=== PATIENT | female | born 1950 | race Caucasian/White ===

== ENCOUNTER 2018-04-18 17:08 | Inpatient (IN) | payer MEDICARE ==
[2018-04-18] MEDS ORDERED: cefTRIAXone IN SWFI 1,000 MG/10 ML SYRINGE IVP STA (17:43)
[2018-04-18] MEDS ORDERED: IBUPROFEN 600 MG TAB PO STA (17:43)
[2018-04-18] MEDS ORDERED: ACETAMINOPHEN TAB 500 MG TAB PO STA (17:43)
--- NOTE | 2018-04-18 17:49 | ED ---
Abdominal Pain HPI - General Chief Complaint: Abdominal Pain Stated Complaint: Vomiting Time Seen by Provider: 04/18/18 17:33 Source: patient, RN notes reviewed, old records reviewed Mode of arrival: wheelchair Limitations: no limitations - History of Present Illness Initial Comments: 67-year-old female presents here on vacation from her home from [place] chief complaint of fever weakness and abdominal pain. Patient has a history of adrenal insufficiency, hypothyroid, depression, anxiety, cyclic vomiting, and common variable immunodeficiency. She reports that she gave herself a IVIG injection on Sunday. She occasionally does have reactions with the injection. Patient states that she has had no recent Motrin or Tylenol. Few episodes of vomiting. She arrives to the emergency Department very weak. Patient arrived with fever 104. Patient's surgical history includes cholecystectomy, partial hysterectomy. - Related Data Home Medications Medication Instructions Recorded Confirmed Fluconazole [Diflucan] 150 mg PO Q7D 04/18/18 04/18/18 Gabapentin [Neurontin] 400 mg PO BID 04/18/18 04/18/18 Levothyroxine Sodium [Synthroid] 37.5 mcg PO OTOOLE 04/18/18 04/18/18 Levothyroxine Sodium [Synthroid] 75 mcg PO MOTUWETHFRSA 04/18/18 04/18/18 Metoclopramide [Reglan] 10 mg PO Q8HR PRN 04/18/18 04/18/18 clonazePAM [KlonoPIN] 0.5 mg PO BID PRN 04/18/18 04/18/18 oxyCODONE HCL 30 mg PO Q6HR PRN 04/18/18 04/18/18 Allergies Allergy/AdvReac Type Severity Reaction Status Date / Time levofloxacin [From Levaquin] Allergy Rash/Hives Verified 04/18/18 19:19 Review of Systems ROS Statement: Those systems with pertinent positive or pertinent negative responses have been documented in the HPI. ROS Other: All systems not noted in ROS Statement are negative. Past Medical History Past Medical History: Thyroid Disorder Additional Past Medical History / Comment(s): Gastro History of Any Multi-Drug Resistant Organisms: None Reported Past Surgical History: No Surgical Hx Reported Past Psychological History: No Psychological Hx Reported Smoking Status: Never smoker Past Alcohol Use History: None Reported Past Drug Use History: None Reported General Exam - General Exam Comments Initial Comments: This is a 67-year-old female. Patient appears very weak and ill. Temperature 104F, pulse 124. Respiratory rate 22, blood pressure 122/79. Pulse ox 98. Limitations: no limitations Eye exam: Present: normal appearance, PERRL, EOMI. Absent: scleral icterus, conjunctival injection, periorbital swelling ENT exam: Present: normal exam, mucous membranes moist Neck exam: Present: normal inspection. Absent: tenderness, meningismus, lymphadenopathy Respiratory exam: Present: normal lung sounds bilaterally. Absent: respiratory distress, wheezes, rales, rhonchi, stridor Cardiovascular Exam: Present: normal rhythm, tachycardia, normal heart sounds. Absent: regular rate, systolic murmur, diastolic murmur, rubs, gallop, clicks GI/Abdominal exam: Present: soft, tenderness (Right lower quadrant suprapubic tenderness.), normal bowel sounds. Absent: distended, guarding, rebound, rigid Extremities exam: Present: normal inspection, full ROM, normal capillary refill. Absent: tenderness, pedal edema, joint swelling, calf tenderness Back exam: Present: normal inspection Neurological exam: Present: alert, oriented X3, CN II-XII intact Psychiatric exam: Present: normal affect, normal mood Skin exam: Present: warm, dry, intact, normal color. Absent: rash Course Vital Signs 04/18/18 04/18/18 04/18/18 17:18 18:00 18:26 Temperature 100.6 F H 103.9 F H Pulse Rate 124 H 122 H Respiratory 22 22 Rate Blood Pressure 122/79 160/71 O2 Sat by Pulse 99 96 Oximetry 04/18/18 04/18/18 19:13 20:27 Temperature 102.3 F H 99.1 F Pulse Rate 109 H 106 H Respiratory 20 17 Rate Blood Pressure 147/70 120/69 O2 Sat by Pulse 95 96 Oximetry - Reevaluation(s) Reevaluation #1: 04/18/18 19:40 Is reevaluated this time, she reports to me that she slipped out of bed and fell on her buttocks. Patient states that she laid on the floor for approximately 10 minutes. She then pulled herself back up into bed. Patient reports no injury. She states she has no head or neck pain. She has not went to computed tomography scan yet at this time. Patient was informed of her lab work. She does report to me that it seems that her symptoms are likely related to her recent fusion. She does report to me that it was actually yesterday she did the subcu injections of plasma. Medical Decision Making - Medical Decision Making 59-year-old female history of immunodeficiency had one day after receiving injections of her IVIG presents today with fever 104 and weakness. Does complain of some abdominal pain. She does report chronic abdominal pain. 2 L IV bolus is given and blood culture and lactic acid were obtained. Patient does have history of adrenal insufficiency. Patient was given 100 mg of IV Cortef due to history of adrenal deficiency and high fever concern for infection. Patient was started on IV Rocephin for a period coverage at this time. Patient does report she feels much better after receiving IV fluids and Motrin Tylenol per she looks much better. Patient CT of the pelvis is evidence of splenomegaly however no other acute process noted. Cultures of the blood and urine obtained. Patient will be admitted this time to Dr. Stack with consult to infectious disease. - Lab Data Result diagrams: 04/18/18 18:00 04/18/18 18:00 Lab Results 04/18/18 04/18/18 04/18/18 Range/Units 18:00 18:00 18:00 WBC 4.8 (3.8-10.6) k/uL RBC 4.41 (3.80-5.40) m/uL Hgb 13.4 (11.4-16.0) gm/dL Hct 41.0 (34.0-46.0) % MCV 92.9 (80.0-100.0) fL MCH 30.5 (25.0-35.0) pg MCHC 32.8 (31.0-37.0) g/dL RDW 14.1 (11.5-15.5) % Plt Count 154 (150-450) k/uL Neutrophils % 71 % Lymphocytes % 17 % Monocytes % 7 % Eosinophils % 3 % Basophils % 0 % Neutrophils # 3.4 (1.3-7.7) k/uL Lymphocytes # 0.8 L (1.0-4.8) k/uL Monocytes # 0.4 (0-1.0) k/uL Eosinophils # 0.2 (0-0.7) k/uL Basophils # 0.0 (0-0.2) k/uL PT (9.0-12.0) sec INR (<1.2) APTT (22.0-30.0) sec Sodium 136 L (137-145) mmol/L Potassium 4.1 (3.5-5.1) mmol/L Chloride 99 (98-107) mmol/L Carbon Dioxide 25 (22-30) mmol/L Anion Gap 12 mmol/L BUN 15 (7-17) mg/dL Creatinine 1.10 H (0.52-1.04) mg/dL Est GFR (CKD-EPI)AfAm 60 (>60 ml/min/1.73 sqM) Est GFR (CKD-EPI)NonAf 52 (>60 ml/min/1.73 sqM) Glucose 102 H (74-99) mg/dL Plasma Lactic Acid Suhas (0.7-2.0) mmol/L Calcium 8.8 (8.4-10.2) mg/dL Total Bilirubin 0.4 (0.2-1.3) mg/dL AST 35 (14-36) U/L ALT 34 (9-52) U/L Alkaline Phosphatase 85 (38-126) U/L Total Creatine Kinase 81 (30-135) U/L CK-MB (CK-2) 0.5 (0.0-2.4) ng/mL CK-MB (CK-2) Rel Index 0.6 Troponin I <0.012 (0.000-0.034) ng/mL Total Protein 6.9 (6.3-8.2) g/dL Albumin 3.8 (3.5-5.0) g/dL Urine Color Urine Appearance (Clear) Urine pH (5.0-8.0) Ur Specific [place] (1.001-1.035) Urine Protein (Negative) Urine Glucose (UA) (Negative) Urine Ketones (Negative) Urine Blood (Negative) Urine Nitrite (Negative) Urine Bilirubin (Negative) Urine Urobilinogen (<2.0) mg/dL Ur Leukocyte Esterase (Negative) Urine RBC (0-5) /hpf Urine WBC (0-5) /hpf Ur Squamous Epith Cells (0-4) /hpf Urine Bacteria (None) /hpf Urine Mucus (None) /hpf 04/18/18 04/18/18 04/18/18 Range/Units 18:00 18:00 19:30 WBC (3.8-10.6) k/uL RBC (3.80-5.40) m/uL Hgb (11.4-16.0) gm/dL Hct (34.0-46.0) % MCV (80.0-100.0) fL MCH (25.0-35.0) pg MCHC (31.0-37.0) g/dL RDW (11.5-15.5) % Plt Count (150-450) k/uL Neutrophils % % Lymphocytes % % Monocytes % % Eosinophils % % Basophils % % Neutrophils # (1.3-7.7) k/uL Lymphocytes # (1.0-4.8) k/uL Monocytes # (0-1.0) k/uL Eosinophils # (0-0.7) k/uL Basophils # (0-0.2) k/uL PT 10.0 (9.0-12.0) sec INR 1.0 (<1.2) APTT 23.5 (22.0-30.0) sec Sodium (137-145) mmol/L Potassium (3.5-5.1) mmol/L Chloride (98-107) mmol/L Carbon Dioxide (22-30) mmol/L Anion Gap mmol/L BUN (7-17) mg/dL Creatinine (0.52-1.04) mg/dL Est GFR (CKD-EPI)AfAm (>60 ml/min/1.73 sqM) Est GFR (CKD-EPI)NonAf (>60 ml/min/1.73 sqM) Glucose (74-99) mg/dL Plasma Lactic Acid Suhas 1.4 (0.7-2.0) mmol/L Calcium (8.4-10.2) mg/dL Total Bilirubin (0.2-1.3) mg/dL AST (14-36) U/L ALT (9-52) U/L Alkaline Phosphatase (38-126) U/L Total Creatine Kinase (30-135) U/L CK-MB (CK-2) (0.0-2.4) ng/mL CK-MB (CK-2) Rel Index Troponin I (0.000-0.034) ng/mL Total Protein (6.3-8.2) g/dL Albumin (3.5-5.0) g/dL Urine Color Yellow Urine Appearance Clear (Clear) Urine pH 7.0 (5.0-8.0) Ur Specific [place] 1.014 (1.001-1.035) Urine Protein Negative (Negative) Urine Glucose (UA) Negative (Negative) Urine Ketones Negative (Negative) Urine Blood Negative (Negative) Urine Nitrite Negative (Negative) Urine Bilirubin Negative (Negative) Urine Urobilinogen <2.0 (<2.0) mg/dL Ur Leukocyte Esterase Trace H (Negative) Urine RBC 2 (0-5) /hpf Urine WBC 3 (0-5) /hpf Ur Squamous Epith Cells <1 (0-4) /hpf Urine Bacteria Rare H (None) /hpf Urine Mucus Rare H (None) /hpf 04/18/18 17:57 EKG performed at 1754 shows sinus tachycardia, left anterior fascicular block. Abnormal EKG. Ventricular rate of 125 beats were minute. Was 128. QRS duration 80 ms. QT QTc is 310/440 ms. No evidence of ST elevation or T-wave inversion. - Radiology Data Radiology results: report reviewed Chest x-ray shows mild splenomegaly spleen is increased from 10.5 some is a 13 compared on exam. Otherwise negative CT of abdomen and pelvis. Disposition Clinical Impression: Fever, Weakness, Immune deficiency disorder, H/O splenomegaly, Adrenal insufficiency Disposition: ADMITTED IP TO THIS HOSP Condition: Stable Is patient prescribed a controlled substance at d/c from ED?: No When asked, does pt state using other controlled substances?: No If prescribed controlled substance>3 days was MAPS reviewed?: No If opioid is for acute pain is fill amount 7 days or less?: No If Rx opioid, was Start Talking consent form obtained?: No Referrals: Nonstaff,Physician [Primary Care Provider] - 1-2 days Time of Disposition: 21:05
[2018-04-18] MEDS ORDERED: HYDROCORTISONE SUCCINATE 100 MG/2 ML VIAL IV STA (17:50)
[2018-04-18] MEDS: SODIUM CHLORIDE 0.9% 500 ML IV SCH ×4 (18:00→19:45)
[2018-04-18 18:15] LABS: Basophils % (A) 0 %; Eosinophils # (A) 0.2 k/uL (0-0.7); Eosinophils % (A) 3 %; HGB 13.4 gm/dL (11.4-16.0); Lymphocytes # (A) 0.8 k/uL (1.0-4.8); Lymphocytes % (A) 17 %; MCH 30.5 pg (25.0-35.0); MCHC 32.8 g/dL (31.0-37.0); MCV 92.9 fL (80.0-100.0); Mean Platelet Volume 6.1; Monocytes # (A) 0.4 k/uL (0-1.0); Monocytes % (A) 7 %; Neutrophils # (A) 3.4 k/uL (1.3-7.7); Neutrophils % (A) 71 %; Platelet Count 154 k/uL (150-450); RBC 4.41 m/uL (3.80-5.40); RDW 14.1 % (11.5-15.5); WBC 4.8 k/uL (3.8-10.6)
[2018-04-18] MEDS: SODIUM CHLORIDE 0.9% 1,000 ML IV SCH (18:20)
[2018-04-18 18:26] LABS: Partial Thromboplastin Time 23.5 sec (22.0-30.0)
[2018-04-18 18:28] LABS: Creatine Kinase 81 U/L (30-135)
[2018-04-18 18:30] LABS: Albumin 3.8 g/dL (3.5-5.0); Calcium 8.8 mg/dL (8.4-10.2); Potassium 4.1 mmol/L (3.5-5.1); Total Bilirubin 0.4 mg/dL (0.2-1.3); Total Protein 6.9 g/dL (6.3-8.2)
[2018-04-18 18:41] LABS: Creatine Kinase MB 0.5 ng/mL (0.0-2.4); Troponin I <0.012 ng/mL (0.000-0.034)
--- NOTE | 2018-04-18 18:48 | XR ---
EXAMINATION TYPE: XR chest 2V DATE OF EXAM: 04/18/2018 COMPARISON: NONE HISTORY: Fever and vomiting TECHNIQUE: Frontal and lateral views of the chest are obtained. FINDINGS: Heart and mediastinum are normal. Lungs are clear. Diaphragm is normal. There are chest le ads. Bony thorax is intact. IMPRESSION: No active cardiopulmonary disease. Normal heart.
[2018-04-18 19:45] LABS: Appearance,Urine Clear (Clear); Bacteria,Urine Rare /hpf; Bilirubin,Urine Negative (Negative); Blood,Urine Negative (Negative); Color,Urine Yellow; Glucose,Urine (UA) Negative (Negative); Ketones,Urine Negative (Negative); Leukocyte Esterase,Urine Trace (Negative); Mucus,Urine Rare /hpf; Nitrite,Urine Negative (Negative); Protein,Urine Negative (Negative); RBC,Urine 2 /hpf (0-5); Specific Gravity,Urine 1.014 (1.001-1.035); Squamous Epithelial Cell,Urine <1 /hpf (0-4); Urobilinogen,Urine <2.0 mg/dL (<2.0); WBC,Urine 3 /hpf (0-5)
--- NOTE | 2018-04-18 20:28 | CT ---
EXAMINATION TYPE: CT abdomen pelvis w con DATE OF EXAM: 04/18/2018 COMPARISON: 05/12/2013 HISTORY: Fever after blood transfusion yesterday. CT DLP: 1666.4 mGycm Automated exposure control for dose reduction was used. TECHNIQUE: Helical acquisition of images was performed from the lung bases through the pelvis. CONTRAST: Performed without Oral Contrast and with IV Contrast, patient injected with 100ml mL of Isovue M300. FINDINGS: Lung bases are clear. There is no pleural effusion. Heart size is normal. There is no pericardial eff usion. Spleen is large and measures 13 cm. Liver shows no focal defect. There is no pancreatic mass. There a re clips from cholecystectomy. Bile ducts are not dilated. There is no adrenal mass. Kidneys show satisfactory contrast opacification. There is no hydronephrosi s. There is no retroperitoneal adenopathy. Bladder distends smoothly. There is no ascites. There is n o evidence of a pelvic mass. Uterus is anteverted. Appendix is not seen. There is no sign of appendic itis. I see no intestinal wall thickening. There are no dilated loops. I see no bony destructive proc ess. There is mild atheromatous change in the abdominal aorta. IMPRESSION: THERE IS MILD SPLENOMEGALY. SPLEEN IS INCREASED FROM 10.5 CM TO 13 CM COMPARED TO OLD EXAM. OTHERWISE NEGATIVE CT SCAN OF THE ABDOMEN AND PELVIS.
[2018-04-18] MEDS ORDERED: NALOXONE 0.4 MG/ML 1 ML VIAL IV PRN (21:52)
[2018-04-18] MEDS ORDERED: ACETAMINOPHEN TAB 325 MG TAB PO PRN (21:52)
[2018-04-18] MEDS ORDERED: ONDANSETRON 4 MG/2 ML VIAL IVP PRN (21:52)
[2018-04-18] MEDS ORDERED: Acetaminophen-Codeine 300-30mg TAB PO PRN (21:52)
[2018-04-18] MEDS ORDERED: IBUPROFEN 400 MG TAB PO PRN (21:52)
[2018-04-18] MEDS ORDERED: METOCLOPRAMIDE 10 MG TAB PO PRN (21:55)
[2018-04-18] MEDS ORDERED: NON-FORMULARY DRUG (Oxycodone Hcl [Oxycodone Hcl] 30 MG) PO PRN (21:55)
[2018-04-18] MEDS: HYDROmorphone 4 MG TABLET PO PRN (22:38)
--- NOTE | 2018-04-19 00:29 | P.HPIM ---
History of Present Illness H&P Date: 04/19/18 Chief Complaint: Fevers chills, fatigue and weakness The patient is a 67-year-old female with a past medical history of adrenal insufficiency, hypothyroidism, depression and anxiety and common variable immunodeficiency disease that presents to the ER with chief complaint of 3 days of intermittent fevers and rigors, along with mild left flank and lower abdominal pain and severe nausea. The patient has chronic lower abdominal and pelvic pain and is on chronic opioids. The patient has been on Ig replacement therapy for several years and currently takes Ig subcutaneously once a week. The patient reports that her last dose was on Sunday and that a few hours post administration she began feeling increasingly fatigued and weak and has been having ongoing fevers or chills, she denies any sore throat, cold- like symptoms. She does report a history of chronic cough and does note some dyspnea on exertion. The patient denies any urinary symptoms exception of dark urine, the patient subsequently presented here due to concern for sepsis that she's had this previously. In the ER showed a comprehensive workup including CBc, cmp and CT abdomen and pelvis That showed mild splenomegaly without any acute process. She was given Solu-Cortef started on empiric IV antibiotics with Rocephin and given several fluid boluses Review of Systems All other 12 point review of systems negative except per HPI Past Medical History Past Medical History: Thyroid Disorder Additional Past Medical History / Comment(s): Gastro History of Any Multi-Drug Resistant Organisms: None Reported Past Surgical History: No Surgical Hx Reported Past Psychological History: No Psychological Hx Reported Smoking Status: Never smoker Past Alcohol Use History: None Reported Past Drug Use History: None Reported Medications and Allergies Home Medications Medication Instructions Recorded Confirmed Type Ergocalciferol [Vitamin D2] 50,000 unit PO Q7D 04/18/18 04/18/18 History Fluconazole [Diflucan] 150 mg PO Q7D 04/18/18 04/18/18 History Gabapentin [Neurontin] 400 mg PO BID 04/18/18 04/18/18 History Gabapentin [Neurontin] 400 mg PO BID 04/18/18 04/18/18 History HYDROmorphone HCL [Dilaudid] 8 mg PO Q4H PRN 04/18/18 04/18/18 History Hydrocortisone [Cortef] 20 mg PO HS 04/18/18 04/18/18 History Hydrocortisone [Cortef] 30 mg PO QAM 04/18/18 04/18/18 History Levothyroxine Sodium [Synthroid] 37.5 mcg PO OTOOLE 04/18/18 04/18/18 History Levothyroxine Sodium [Synthroid] 75 mcg PO MOTUWETHFRSA 04/18/18 04/18/18 History Metoclopramide [Reglan] 10 mg PO Q8HR PRN 04/18/18 04/18/18 History Nortriptyline HCl [Pamelor] 25 mg PO DAILY 04/18/18 04/18/18 History Topiramate [Topamax] 50 mg PO HS 04/18/18 04/18/18 History buPROPion HCL [Wellbutrin SR] 150 mg PO BID 04/18/18 04/18/18 History clonazePAM [KlonoPIN] 0.5 mg PO BID PRN 04/18/18 04/18/18 History oxyCODONE HCL 30 mg PO Q6HR PRN 04/18/18 04/18/18 History Allergies Allergy/AdvReac Type Severity Reaction Status Date / Time levofloxacin [From Levaquin] Allergy Rash/Hives Verified 04/18/18 19:19 Physical Exam Vitals: Vital Signs Temp Pulse Resp BP Pulse Ox 04/18/18 22:12 99.0 F 91 20 127/70 96 04/18/18 20:27 99.1 F 106 H 17 120/69 96 04/18/18 19:13 102.3 F H 109 H 20 147/70 95 04/18/18 18:26 122 H 22 160/71 96 04/18/18 18:00 103.9 F H 04/18/18 17:18 100.6 F H 124 H 22 122/79 99 Intake and Output 04/18/18 04/18/18 04/19/18 14:59 22:59 06:59 Other: Weight 90.718 kg Constitutional: No acute distress, conversant, pleasant, weak and fatigued Eyes: Anicteric sclerae, moist conjunctiva, no lid-lag, PERRLA ENMT: NC/AT,Oropharynx clear, no erythema, exudates Neck:Supple, FROM, no masses, or JVD, No carotid bruits; No thyromegaly Lungs: Clear to auscultation, Clear to percussion, Normal respiratory effort, no accessory muscle use Cardiovascular: Heart regular in rate and rhythm, No murmurs, gallops, or rubs no peripheral edema Abdominal: Soft tender to deep palpation in the lower abdomen, non distended, no guarding, no rebound or rigidity, Normoactive bowel sounds No hepatomegaly, No splenomegaly, No palpable mass No abdominal wall hernia noted Skin: Normal temperature, tone, texture, turgor, No induration No subcutaneous nodules, No rash, lesions, No ulcers Extremities:No digital cyanosis No clubbing, Pedal pulses intact and symmetrical Radial pulses intact and symmetrical Normal gait and station, No calf tenderness Psychiatric: Alert and oriented to person, place and time, Appropriate affect Intact judgement Neuro: Muscles Strength 5/5 in all 4 extremities, Sensation to light touch grossly present throughout, Cranial nerves II-XII grossly intact. No focal sensory deficits Results CBC & Chem 7: 04/18/18 18:00 04/18/18 18:00 Labs: Abnormal Lab Results - Last 24 Hours (Table) 04/18/18 04/18/18 04/18/18 Range/Units 18:00 18:00 19:30 Lymphocytes # 0.8 L (1.0-4.8) k/uL Sodium 136 L (137-145) mmol/L Creatinine 1.10 H (0.52-1.04) mg/dL Glucose 102 H (74-99) mg/dL Ur Leukocyte Esterase Trace H (Negative) Urine Bacteria Rare H (None) /hpf Urine Mucus Rare H (None) /hpf Assessment and Plan Assessment: chronic medical conditions Hypothyroidism Depression and anxiety Chronic pain CODE STATUS DO NOT INTUBATE (1) Fever of unknown origin Current Visit: Yes Status: Acute Code(s): R50.9 - FEVER, UNSPECIFIED SNOMED Code(s): 1683659 (2) SIRS (systemic inflammatory response syndrome) Current Visit: Yes Status: Acute Code(s): R65.10 - SIRS OF NON-INFECTIOUS ORIGIN W/O ACUTE ORGAN DYSFUNCTION SNOMED Code(s): 191472563 (3) Combined variable immunodeficiency Current Visit: Yes Status: Acute Code(s): D83.9 - COMMON VARIABLE IMMUNODEFICIENCY, UNSPECIFIED SNOMED Code(s): 743065296 (4) Adrenal insufficiency Current Visit: Yes Status: Acute Code(s): E27.40 - UNSPECIFIED ADRENOCORTICAL INSUFFICIENCY SNOMED Code(s): 073833047 Plan: The patient is admitted anticipated greater than 2 midnight stay with fever of unknown origin with a complicated past focal history of common variable immunodeficiency disease on IG supplementation. The patient presented with SIRS with known source of infection at present , blood and urine cultures have been ordered imaging studies have shown no infectious etiology, she is continued on empiric IV antibiotics with Rocephin with plans to consult ID in the a.m. with continual supportive therapy with anti-emetics Tylenol for fevers. The patient is continue her chronic medications and is placed on DVT prophylaxis with SCDs and Lovenox. We'll continue to follow her clinical course
[2018-04-19 03:51] VITALS: BMI 33.3
[2018-04-19] MEDS: HYDROmorphone 4 MG TABLET PO PRN ×2 (04:36→08:46)
[2018-04-19] MEDS: SODIUM CHLORIDE 0.9% 1,000 ML IV SCH (04:38)
[2018-04-19] MEDS: LEVOTHYROXINE 75 MCG TAB PO SCH (05:55)
[2018-04-19 07:57] LABS: Albumin 2.9 g/dL (3.5-5.0); Calcium 7.9 mg/dL (8.4-10.2); Potassium 4.6 mmol/L (3.5-5.1); Total Bilirubin 0.4 mg/dL (0.2-1.3); Total Protein 5.6 g/dL (6.3-8.2)
[2018-04-19 08:10] LABS: Basophils % (A) 1 %; Eosinophils # (A) 0.1 k/uL (0-0.7); Eosinophils % (A) 2 %; HCT 36.8 % (34.0-46.0); HGB 12.2 gm/dL (11.4-16.0); Lymphocytes # (A) 1.3 k/uL (1.0-4.8); Lymphocytes % (A) 38 %; MCH 30.8 pg (25.0-35.0); MCHC 33.2 g/dL (31.0-37.0); MCV 92.7 fL (80.0-100.0); Mean Platelet Volume 7.4; Monocytes # (A) 0.5 k/uL (0-1.0); Monocytes % (A) 15 %; Neutrophils # (A) 1.5 k/uL (1.3-7.7); Neutrophils % (A) 41 %; Platelet Count 136 k/uL (150-450); RBC 3.97 m/uL (3.80-5.40); WBC 3.6 k/uL (3.8-10.6)
[2018-04-19] MEDS: NORTRIPTYLINE 25 MG CAP PO SCH (08:49)
[2018-04-19] MEDS: PANTOPRAZOLE 40 MG/10 ML VIAL IV SCH (08:50)
[2018-04-19] MEDS: buPROPion SR 150 MG TABLET.ER PO SCH ×2 (08:50→20:08)
[2018-04-19] MEDS: GABAPENTIN 400 MG CAP PO SCH ×2 (08:50→20:09)
[2018-04-19] MEDS: HYDROCORTISONE 10 MG TAB PO SCH (08:50)
[2018-04-19] MEDS: ENOXAPARIN 40 MG/0.4 ML SYRINGE SQ SCH (08:50)
[2018-04-19] MEDS ORDERED: GABAPENTIN 400 MG CAP PO SCH (09:00)
--- NOTE | 2018-04-19 10:44 | P.PN ---
Subjective Progress Note Date: 04/19/18 Principal diagnosis: Fever Doing well, no recurrent fevers. No chest pain or shortness of breath. No nausea or vomiting. Objective - Vital Signs Vital signs: Vital Signs Temp 96.5 F L 04/19/18 05:00 Pulse 74 04/19/18 05:00 Resp 16 04/19/18 05:00 BP 109/63 04/19/18 05:00 Pulse Ox 97 04/19/18 08:17 Intake & Output 04/18/18 04/19/18 04/19/18 18:59 06:59 18:59 Intake Total 1040 Balance 1040 Weight 90.718 kg 90.718 kg Intake: Intake, IV Titration 800 Amount Sodium Chloride 0.9% 1, 800 000 ml @ 100 mls/hr IV . Q10H CRISTINA Rx#:[id number] Oral 240 Other: # Voids 1 - Exam Constitutional: No acute distress, conversant, pleasant Eyes:Anicteric sclerae, moist conjunctiva, no lid-lag, PERRLA, ENMT: Oropharynx clear, no erythema, exudates Neck: Supple, FROM, no masses, or JVD, No carotid bruits, No thyromegaly Lungs: Clear to auscultation, Clear to percussion, Normal respiratory effort, no accessory muscle use Cardiovascular: Heart regular in rate and rhythm, No murmurs, gallops, or rubs, No peripheral edema Abdominal: Soft, Nontender, no guarding, rebound or rigidity, Normoactive bowel sounds, No hepatomegaly, No splenomegaly, No palpable mass Skin: Normal temperature, tone, texture, turgor, no induration, No subcutaneous nodules, No rash, lesions, No ulcers Extremities: No digital cyanosis, No clubbing, Pedal pulses intact and symmetrical, Radial pulses intact and symmetrical, No calf tenderness Psychiatric: Alert and oriented to person, place and time, appropriate affect, intact judgement Neuro: Muscles Strength 5/5 in all 4 extremities, Sensation to light touch grossly present throughout, Cranial nerves II-XII grossly intact, no focal sensory deficits - Labs CBC & Chem 7: 04/19/18 07:03 04/19/18 07:03 Labs: Abnormal Lab Results - Last 24 Hours (Table) 04/18/18 04/18/18 04/18/18 Range/Units 18:00 18:00 19:30 WBC (3.8-10.6) k/uL Plt Count (150-450) k/uL Lymphocytes # 0.8 L (1.0-4.8) k/uL Sodium 136 L (137-145) mmol/L Chloride (98-107) mmol/L Creatinine 1.10 H (0.52-1.04) mg/dL Glucose 102 H (74-99) mg/dL Calcium (8.4-10.2) mg/dL AST (14-36) U/L Total Protein (6.3-8.2) g/dL Albumin (3.5-5.0) g/dL Ur Leukocyte Esterase Trace H (Negative) Urine Bacteria Rare H (None) /hpf Urine Mucus Rare H (None) /hpf 04/19/18 04/19/18 Range/Units 07:03 07:03 WBC 3.6 L (3.8-10.6) k/uL Plt Count 136 L (150-450) k/uL Lymphocytes # (1.0-4.8) k/uL Sodium (137-145) mmol/L Chloride 108 H (98-107) mmol/L Creatinine (0.52-1.04) mg/dL Glucose (74-99) mg/dL Calcium 7.9 L (8.4-10.2) mg/dL AST 39 H (14-36) U/L Total Protein 5.6 L (6.3-8.2) g/dL Albumin 2.9 L (3.5-5.0) g/dL Ur Leukocyte Esterase (Negative) Urine Bacteria (None) /hpf Urine Mucus (None) /hpf Microbiology - Last 24 Hours (Table) 04/18/18 19:30 Urine Culture - Preliminary Urine,Voided Assessment and Plan Plan: Fever of unknown origin/SIRS (systemic inflammatory response syndrome) Patient is more prone to get severe infections secondary to Combined variable immunodeficiency, she gets IVIG every week. Currently watching her off antibiotics Tylenol for fevers. UA and chest x-ray negative for infection Blood cultures sent in ER, will follow Adrenal insufficiency/hypothyroidism Stable Resume home meds DVT prophylaxis SCDs and Lovenox Anticipated discharge: 1 day Disposition: Home
[2018-04-19 11:29] LABS: Glucose,Whole Blood 98 mg/dL (75-99)
[2018-04-19 17:40] LABS: Glucose,Whole Blood 105 mg/dL (75-99)
[2018-04-19] MEDS: clonazePAM 0.5 MG TAB PO PRN (18:18)
[2018-04-19] MEDS: TOPIRAMATE 25 MG TAB PO SCH (20:08)
[2018-04-19] MEDS: HYDROCORTISONE 20 MG TAB PO SCH (20:08)
[2018-04-19 20:31] LABS: Glucose,Whole Blood 105 mg/dL (75-99)
[2018-04-19] MEDS: TEMAZEPAM 15 MG CAP PO PRN (23:49)
[2018-04-20 01:45] VITALS: RESP 16
[2018-04-20] MEDS: SODIUM CHLORIDE 0.9% 1,000 ML IV SCH ×4 (02:12→20:51)
[2018-04-20] MEDS: LEVOTHYROXINE 75 MCG TAB PO SCH (06:01)
[2018-04-20 07:33] LABS: Glucose,Whole Blood 80 mg/dL (75-99)
[2018-04-20] MEDS: PANTOPRAZOLE 40 MG/10 ML VIAL IV SCH (07:49)
[2018-04-20] MEDS: HYDROCORTISONE 10 MG TAB PO SCH (07:50)
[2018-04-20] MEDS: NORTRIPTYLINE 25 MG CAP PO SCH (07:50)
[2018-04-20] MEDS: buPROPion SR 150 MG TABLET.ER PO SCH ×2 (07:50→20:50)
[2018-04-20] MEDS: ENOXAPARIN 40 MG/0.4 ML SYRINGE SQ SCH (07:50)
[2018-04-20] MEDS: GABAPENTIN 400 MG CAP PO SCH ×2 (07:51→20:50)
[2018-04-20] MEDS: LORazepam 2 MG/ML INJ IV PRN ×2 (09:42→19:31)
[2018-04-20 11:02] LABS: Glucose,Whole Blood 98 mg/dL (75-99)
[2018-04-20] MEDS ORDERED: SALT AND SODA MOUTHWASH 1,000 ML PO PRN (15:06)
[2018-04-20] MEDS: cefTRIAXone IN SWFI 1,000 MG/10 ML SYRINGE IVP SCH (15:54)
[2018-04-20 17:23] LABS: Glucose,Whole Blood 115 mg/dL (75-99)
--- NOTE | 2018-04-20 17:25 | P.PN ---
Subjective Progress Note Date: 04/20/18 Principal diagnosis: Fever Feeling better. No chest pain or shortness of breath. No recurrent fevers. Objective - Vital Signs Vital signs: Vital Signs Temp 97.7 F 04/20/18 15:50 Pulse 96 04/20/18 15:50 Resp 16 04/20/18 15:50 BP 122/76 04/20/18 15:50 Pulse Ox 93 L 04/20/18 15:50 Intake & Output 04/19/18 04/20/18 04/20/18 18:59 06:59 18:59 Intake Total 924 036 0404 Balance 042 055 9948 Weight 90.718 kg Intake: Intake, IV Titration 900 1200 Amount Sodium Chloride 0.9% 1, 900 1200 000 ml @ 100 mls/hr IV . Q10H [facility] Rx#:[id number] Oral 260 Other: # Voids 2 1 6 - Exam Constitutional: No acute distress, conversant, pleasant Eyes:Anicteric sclerae, moist conjunctiva, no lid-lag, PERRLA, ENMT: Oropharynx clear, no erythema, exudates Neck: Supple, FROM, no masses, or JVD, No carotid bruits, No thyromegaly Lungs: Clear to auscultation, Clear to percussion, Normal respiratory effort, no accessory muscle use Cardiovascular: Heart regular in rate and rhythm, No murmurs, gallops, or rubs, No peripheral edema Abdominal: Soft, Nontender, no guarding, rebound or rigidity, Normoactive bowel sounds, No hepatomegaly, No splenomegaly, No palpable mass Skin: Normal temperature, tone, texture, turgor, no induration, No subcutaneous nodules, No rash, lesions, No ulcers Extremities: No digital cyanosis, No clubbing, Pedal pulses intact and symmetrical, Radial pulses intact and symmetrical, No calf tenderness Psychiatric: Alert and oriented to person, place and time, appropriate affect, intact judgement Neuro: Muscles Strength 5/5 in all 4 extremities, Sensation to light touch grossly present throughout, Cranial nerves II-XII grossly intact, no focal sensory deficits - Labs CBC & Chem 7: 04/19/18 07:03 04/19/18 07:03 Labs: Abnormal Lab Results - Last 24 Hours (Table) 04/19/18 04/19/18 04/20/18 Range/Units 17:38 20:29 17:22 POC Glucose (mg/dL) 105 H 105 H 115 H (75-99) mg/dL Microbiology - Last 24 Hours (Table) 04/19/18 00:41 Blood Culture - Preliminary Blood No Growth after 24 hours 04/18/18 19:30 Urine Culture - Final Urine,Voided 04/18/18 18:00 Blood Culture - Preliminary Blood No Growth after 24 hours Assessment and Plan Plan: Fever of unknown origin/SIRS (systemic inflammatory response syndrome) Discussed with ID, Dr. Stewart Patient is more prone to get severe infections secondary to Combined variable immunodeficiency, she gets IVIG every week. On ceftriaxone 1 g IV daily Tylenol for fevers. UA and chest x-ray negative for infection Blood cultures sent in ER, will follow, currently negative Adrenal insufficiency/hypothyroidism Stable Resume home meds DVT prophylaxis SCDs and Lovenox Anticipated discharge: 1 day Disposition: Home
[2018-04-20] MEDS: clonazePAM 0.5 MG TAB PO PRN (18:23)
--- NOTE | 2018-04-20 18:34 | P.CONS ---
History of Present Illness - Reason for Consult Consult date: 04/20/18 - Chief Complaint fever and chills - History of Present Illness 67-year-old female with an extensive and complicated past medical history regarding her many years of illnesses related to her common variable immunodeficiency. She relates that she has difficulties with her immune system as well as autoimmune disease and states that she has crossover autoimmune disease with Sjogren's, rheumatoid arthritis and lupus. She has chronic pain and difficulty with her joints and a dry mouth. She's had many urinary tract infections over the years and over the last few years has had multiple bouts of pneumonia. She has interstitial cystitis and has had many interventions, including bladder distention treatments with some improvement. If she does not improve over time her urologist is even offered a cystectomy and ileostomy. The patient fortunately does not think that's a good idea at this time. The patient relates today that she is feeling slightly better but he had high-grade fevers chills and rigors at the presentation. She was very concerned because last year when she was living in [place] she had similar symptoms and went into septic shock and had an 8 week hospital stay and recovery. She relates that she can feel that her spleen is enlarged again giving her some discomfort superimposed on some of her chronic pain syndrome difficulties with abdominal and pelvic pain. She today is feeling somewhat better after hydration and antibiotic therapy years are improved and she is having no further chills or rigors. She has profound fatigue which is not new. Review of Systems 67-year-old female who does have obesity seems comfortable at this time HEENT:Denies headache or acute visual change. Denies sinus or mouth discomforts. Denies neck stiffness or pain. Denies significant oral cavity pain. Denies difficulty on swallowing.complains of dry oral cavity Lungs: Denies significant shortness of breath, cough, sputum production, or hemoptysis. Cardiovascular: Denies significant shortness of breath, chest pain, chest wall pain, orthopnea, dyspnea on exertion, syncope Gastrointestinal:she is chronic abdominal pain is a bit worse now that her spleen is enlarged in the left upper quadrant. She denying nausea or emesis patient diarrhea melena hematochezia or hematemesis Musculoskeletal:She has chronic musculoskeletal pains that are diffuse nothing is acutely flared at this time Skin: Denies new rash or lesions. No new ulcers or wounds are related.. Neuro: Denies headache or visual change. Denies any new onset weakness or difficulty with ambulation. Denies falls or seizures. Psychiatric:complains of chronic anxiety and depression Endocrine: voids of chronic fatigue and has had weight gain over time Past Medical History Past Medical History: Thyroid Disorder Additional Past Medical History / Comment(s): Gastro History of Any Multi-Drug Resistant Organisms: None Reported Past Surgical History: No Surgical Hx Reported Past Anesthesia/Blood Transfusion Reactions: No Reported Reaction Past Psychological History: No Psychological Hx Reported Additional Psychological History / Comment(s): single no longer able to live on her own consequently lives with her sister and [id number]. Because they[place] to [place] for the summer she does come here at that time. It is complicated because of her IVIG subcutaneous injection. She is a lifelong nonsmoker and denies any significant alcohol use no recreational drug use. No animals in the home at this time. travels between [place] and [place]. No international travel. No experience. 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 Smoking Status: Never smoker Past Alcohol Use History: None Reported Past Drug Use History: None Reported - Past Family History Mother Family Medical History: Thyroid Disorder Medications and Allergies Home Medications and Allergies Comment(s): Current Medications Acetaminophen (Tylenol Tab) 650 mg PO Q6HR PRN PRN Reason: Mild Pain or Fever > 100.5 Acetaminophen/Codeine Phosphate (Tylenol #3) 1 each PO Q4HR PRN PRN Reason: Moderate Pain Last Admin: 04/20/18 12:54 Dose: 1 each Bupropion HCl (Wellbutrin Sr) 150 mg PO BID [facility] Last Admin: 04/20/18 07:50 Dose: 150 mg Ceftriaxone Sodium (Rocephin) 1,000 mg IVP Q24HR [facility] Last Admin: 04/20/18 15:54 Dose: 1,000 mg Clonazepam (Klonopin) 0.5 mg PO BID PRN PRN Reason: Anxiety Last Admin: 04/20/18 18:23 Dose: 0.5 mg Enoxaparin Sodium (Lovenox) 40 mg SQ DAILY [facility] Last Admin: 04/20/18 07:50 Dose: 40 mg Ergocalciferol (Vitamin D2) 50,000 unit PO Q7D [facility] Fluconazole (Diflucan) 150 mg PO Q7D [facility] Gabapentin (Neurontin) 400 mg PO BID [facility] Last Admin: 04/20/18 07:51 Dose: 400 mg Hydrocortisone (Cortef) 20 mg PO HS [facility] Last Admin: 04/19/18 20:08 Dose: 20 mg Hydrocortisone (Cortef) 30 mg PO QAM [facility] Last Admin: 04/20/18 07:50 Dose: 30 mg Sodium Chloride (Saline 0.9%) 1,000 mls @ 100 mls/hr IV .Q10H [facility] Last Admin: 04/20/18 11:58 Dose: 100 mls/hr Ibuprofen (Motrin) 400 mg PO Q6HR PRN PRN Reason: Mild Pain or Fever > 100.5 Levothyroxine Sodium (Synthroid) 37.5 mcg PO Potter@0630 [facility] Levothyroxine Sodium (Synthroid) 75 mcg PO MoTuWeThFrSa@0630 [facility] Last Admin: 04/20/18 06:01 Dose: 75 mcg Lorazepam (Ativan) 0.5 mg IV Q6HR PRN PRN Reason: Anxiety Last Admin: 04/20/18 09:42 Dose: 0.5 mg Metoclopramide HCl (Reglan) 10 mg PO Q8HR PRN PRN Reason: Nausea Morphine Sulfate (Morphine Sulfate (Inj)) 4 mg IV Q4HR PRN PRN Reason: Severe Pain Naloxone HCl (Narcan) 0.2 mg IV Q2M PRN PRN Reason: Opioid Reversal Nortriptyline HCl (Pamelor) 25 mg PO DAILY [facility] Last Admin: 04/20/18 07:50 Dose: 25 mg Ondansetron HCl (Zofran) 4 mg IVP Q8HR PRN PRN Reason: Nausea And Vomiting Oxycodone HCl (Oxyir) 30 mg PO Q6H PRN PRN Reason: Pain Last Admin: 04/20/18 14:15 Dose: 30 mg Pantoprazole Sodium (Protonix) 40 mg IV DAILY [facility] Last Admin: 04/20/18 07:49 Dose: 40 mg Sodium Bicarbonate () 20 ml PO 5XD PRN PRN Reason: Dry Mouth Temazepam (Restoril) 15 mg PO HS PRN PRN Reason: Insomnia Last Admin: 04/19/18 23:49 Dose: 15 mg Topiramate (Topamax) 50 mg PO HS [facility] Last Admin: 04/19/18 20:08 Dose: 50 mg Home Medications Medication Instructions Recorded Confirmed Type Ergocalciferol [Vitamin D2] 50,000 unit PO Q7D 04/18/18 04/18/18 History Fluconazole [Diflucan] 150 mg PO Q7D 04/18/18 04/18/18 History Gabapentin [Neurontin] 400 mg PO BID 04/18/18 04/18/18 History Gabapentin [Neurontin] 400 mg PO BID 04/18/18 04/18/18 History Hydrocortisone [Cortef] 20 mg PO HS 04/18/18 04/18/18 History Hydrocortisone [Cortef] 30 mg PO QAM 04/18/18 04/18/18 History Levothyroxine Sodium [Synthroid] 37.5 mcg PO POTTER 04/18/18 04/18/18 History Levothyroxine Sodium [Synthroid] 75 mcg PO MOTUWETHFRSA 04/18/18 04/18/18 History Metoclopramide [Reglan] 10 mg PO Q8HR PRN 04/18/18 04/18/18 History Nortriptyline HCl [Pamelor] 25 mg PO DAILY 04/18/18 04/18/18 History Topiramate [Topamax] 50 mg PO HS 04/18/18 04/18/18 History buPROPion HCL [Wellbutrin SR] 150 mg PO BID 04/18/18 04/18/18 History clonazePAM [KlonoPIN] 0.5 mg PO BID PRN 04/18/18 04/18/18 History oxyCODONE HCL 30 mg PO Q6HR PRN 04/18/18 04/18/18 History Allergies Allergy/AdvReac Type Severity Reaction Status Date / Time levofloxacin [From Levaquin] Allergy Rash/Hives Verified 04/18/18 19:19 Physical Exam Vitals: Vital Signs Temp Pulse Resp BP Pulse Ox 04/20/18 15:50 97.7 F 96 16 122/76 93 L 04/20/18 15:06 80 16 04/20/18 06:07 97.3 F L 80 16 157/92 97 04/19/18 23:00 97.1 F L 85 16 145/92 94 L Intake and Output 04/20/18 04/20/18 04/20/18 06:59 14:59 22:59 Intake Total 800 1200 Balance 800 1200 Intake: Intake, IV Titration 800 1200 Amount Sodium Chloride 0.9% 1, 800 1200 000 ml @ 100 mls/hr IV . Q10H [facility] Rx#:[id number] Other: # Voids 1 6 6 Weight 90.718 kg 90.718 kg 59-year-old woman who has obesity is apparently quite comfortable at this moment which is improved from admission HEENT: Anicteric conjunctiva are pink and moist nasal mucosa grossly intact without significant lesions, there is no thrush.oral lesions oral cavity is slightly dry Neck: The neck is supple without significant lymphadenopathy or thyromegaly. Lungs: Good bilateral air entry without significant crackles or wheezing. There is no significant bronchial sounds. There is no egophony or dullness. Heart: Regular rate and rhythm with an audible S1-S2, no S3 no S4. There is no significant murmur click or rub, PMI was nondisplaced. Abdomen: Positive bowel sounds soft and nontender without palpable masses the liver is not enlarged splenomegaly is just palpable There was no guarding or rebound. Extremities: The upper extremities have excellent pulses they are symmetric, no significant petechiae or telangiectasia. No splinter hemorrhages were noted. The lower extremities are free from significant edema. The peripheral pulses were 2+ and symmetric. Neuro: Awake alert oriented to person place and time. There are no acute new gross focal sensory motor deficits. Results CBC & Chem 7: 04/19/18 07:03 04/19/18 07:03 Labs: Abnormal Lab Results - Last 24 Hours (Table) 04/19/18 04/20/18 Range/Units 20:29 17:22 POC Glucose (mg/dL) 105 H 115 H (75-99) mg/dL Microbiology - Last 24 Hours (Table) 04/19/18 00:41 Blood Culture - Preliminary Blood No Growth after 24 hours 04/18/18 19:30 Urine Culture - Final Urine,Voided 04/18/18 18:00 Blood Culture - Preliminary Blood No Growth after 24 hours Laboratory Results WBC 3.6 k/uL (3.8-10.6) L 04/19/18 07:03 RBC 3.97 m/uL (3.80-5.40) 04/19/18 07:03 Hgb 12.2 gm/dL (11.4-16.0) 04/19/18 07:03 Hct 36.8 % (34.0-46.0) 04/19/18 07:03 MCV 92.7 fL (80.0-100.0) 04/19/18 07:03 MCH 30.8 pg (25.0-35.0) 04/19/18 07:03 MCHC 33.2 g/dL (31.0-37.0) 04/19/18 07:03 RDW 14.0 % (11.5-15.5) 04/19/18 07:03 Plt Count 136 k/uL (150-450) L 04/19/18 07:03 Neutrophils % 41 % 04/19/18 07:03 Lymphocytes % 38 % 04/19/18 07:03 Monocytes % 15 % 04/19/18 07:03 Eosinophils % 2 % 04/19/18 07:03 Basophils % 1 % 04/19/18 07:03 Neutrophils # 1.5 k/uL (1.3-7.7) 04/19/18 07:03 Lymphocytes # 1.3 k/uL (1.0-4.8) 04/19/18 07:03 Monocytes # 0.5 k/uL (0-1.0) 04/19/18 07:03 Eosinophils # 0.1 k/uL (0-0.7) 04/19/18 07:03 Basophils # 0.0 k/uL (0-0.2) 04/19/18 07:03 PT 10.0 sec (9.0-12.0) 04/18/18 18:00 INR 1.0 (<1.2) 04/18/18 18:00 APTT 23.5 sec (22.0-30.0) 04/18/18 18:00 Sodium 139 mmol/L (137-145) 04/19/18 07:03 Potassium 4.6 mmol/L (3.5-5.1) 04/19/18 07:03 Chloride 108 mmol/L (98-107) H 04/19/18 07:03 Carbon Dioxide 23 mmol/L (22-30) 04/19/18 07:03 Anion Gap 8 mmol/L 04/19/18 07:03 BUN 14 mg/dL (7-17) 04/19/18 07:03 Creatinine 0.85 mg/dL (0.52-1.04) 04/19/18 07:03 Est GFR (CKD-EPI)AfAm 82 (>60 ml/min/1.73 sqM) 04/19/18 07:03 Est GFR (CKD-EPI)NonAf 71 (>60 ml/min/1.73 sqM) 04/19/18 07:03 Glucose 97 mg/dL (74-99) 04/19/18 07:03 POC Glucose (mg/dL) 115 mg/dL (75-99) H 04/20/18 17:22 POC Glu Clinical Courier Sophia Serrano 04/20/18 17:22 Plasma Lactic Acid Suhas 1.4 mmol/L (0.7-2.0) 04/18/18 18:00 Calcium 7.9 mg/dL (8.4-10.2) L 04/19/18 07:03 Total Bilirubin 0.4 mg/dL (0.2-1.3) 04/19/18 07:03 AST 39 U/L (14-36) H 04/19/18 07:03 ALT 33 U/L (9-52) 04/19/18 07:03 Alkaline Phosphatase 57 U/L (38-126) 04/19/18 07:03 Total Creatine Kinase 81 U/L (30-135) 04/18/18 18:00 CK-MB (CK-2) 0.5 ng/mL (0.0-2.4) 04/18/18 18:00 CK-MB (CK-2) Rel Index 0.6 04/18/18 18:00 Troponin I <0.012 ng/mL (0.000-0.034) 04/18/18 18:00 Total Protein 5.6 g/dL (6.3-8.2) L 04/19/18 07:03 Albumin 2.9 g/dL (3.5-5.0) L 04/19/18 07:03 Urine Color Yellow 04/18/18 19:30 Urine Appearance Clear (Clear) 04/18/18 19:30 Urine pH 7.0 (5.0-8.0) 04/18/18 19:30 Ur Specific Spring 1.014 (1.001-1.035) 04/18/18 19:30 Urine Protein Negative (Negative) 04/18/18 19:30 Urine Glucose (UA) Negative (Negative) 04/18/18 19:30 Urine Ketones Negative (Negative) 04/18/18 19:30 Urine Blood Negative (Negative) 04/18/18 19:30 Urine Nitrite Negative (Negative) 04/18/18 19:30 Urine Bilirubin Negative (Negative) 04/18/18 19:30 Urine Urobilinogen <2.0 mg/dL (<2.0) 04/18/18 19:30 Ur Leukocyte Esterase Trace (Negative) H 04/18/18 19:30 Urine RBC 2 /hpf (0-5) 04/18/18 19:30 Urine WBC 3 /hpf (0-5) 04/18/18 19:30 Ur Squamous Epith Cells <1 /hpf (0-4) 04/18/18 19:30 Urine Bacteria Rare /hpf (None) H 04/18/18 19:30 Urine Mucus Rare /hpf (None) H 04/18/18 19:30 Microbiology 04/19/18 00:41 Blood Blood Culture - Preliminary No Growth after 24 hours 04/18/18: Urine,Voided Urine Culture - Final 04/18/18 18:00 Blood Blood Culture - Preliminary No Growth after 24 hours Assessment and Plan (1) Combined variable immunodeficiency Narrative/Plan: 67-year-old female presents to the emergency center from home with significant weakness fever chills rigors have been going on for about 3 days. She was developing some left abdominal pain and left flank pain. it was associated with some nausea and generalized malaise. She does take chronic pain medicationand found that that without pain. Upon presentation she had a high-grade fever 103.9, 102.3 overnight. Because of her feverthe infectious diseases consultation was requested. The patient does have a known history of common variable insufficiency and she is at great risk for underlying infections. However the patient relates that her fever started directly after she did her most recent dose of subcutaneous immunoglobulin. Fever and injection site irritation of the most common complications of this infusion therapy. However fever nearly of 104 is somewhat unusual and so have significant concerns of potential underlying infection. She received a dose of Rocephin and is only showing some improvement. Cultures are in process she does have a history of chronic urinary infections and would continue Rocephin for now until urine cultures are available. If she does improve it would be the option of transitioning to oral cefuroxime to complete 7 days orally 500 mg orally every 12 hours. If possible she could've always follow-up in the outpatient infectious diseases office, we may be able to work with her consulting property manager in [place] to supply her subcutaneous immunoglobulin While she is is staying in [place] Current Visit: Yes Status: Acute Code(s): D83.9 - COMMON VARIABLE IMMUNODEFICIENCY, UNSPECIFIED SNOMED Code(s): 535197172 (2) Adrenal insufficiency Current Visit: Yes Status: Acute Code(s): E27.40 - UNSPECIFIED ADRENOCORTICAL INSUFFICIENCY SNOMED Code(s): 018655989 (3) Fever Current Visit: Yes Status: Acute Code(s): R50.9 - FEVER, UNSPECIFIED SNOMED Code(s): 546238975 (4) Weakness Current Visit: Yes Status: Acute Code(s): R53.1 - WEAKNESS SNOMED Code(s) : 79108821
[2018-04-20] MEDS: TOPIRAMATE 25 MG TAB PO SCH (20:50)
[2018-04-20] MEDS: HYDROCORTISONE 20 MG TAB PO SCH (20:50)
[2018-04-20] MEDS: MORPHINE SULFATE 2 MG/ML SYRINGE IV PRN (20:55)
[2018-04-20] MEDS: TEMAZEPAM 15 MG CAP PO PRN (23:24)
[2018-04-21] MEDS: MORPHINE SULFATE 2 MG/ML SYRINGE IV PRN ×3 (02:19→14:03)
[2018-04-21] MEDS: SODIUM CHLORIDE 0.9% 1,000 ML IV SCH (05:34)
[2018-04-21 05:46] VITALS: BP 137/83; PULSE 77; TEMP 96.9
[2018-04-21] MEDS ORDERED: LEVOTHYROXINE 75 MCG TAB PO SCH (06:30)
[2018-04-21] MEDS: ENOXAPARIN 40 MG/0.4 ML SYRINGE SQ SCH (07:11)
[2018-04-21] MEDS: buPROPion SR 150 MG TABLET.ER PO SCH (07:12)
[2018-04-21] MEDS: PANTOPRAZOLE 40 MG/10 ML VIAL IV SCH (07:12)
[2018-04-21] MEDS: HYDROCORTISONE 10 MG TAB PO SCH (07:12)
[2018-04-21] MEDS: GABAPENTIN 400 MG CAP PO SCH (07:12)
[2018-04-21] MEDS: cefTRIAXone IN SWFI 1,000 MG/10 ML SYRINGE IVP SCH (08:45)
--- NOTE | 2018-04-21 12:51 | P.DS ---
Providers Date of admission: 04/18/18 21:55 Expected date of discharge: 04/21/18 Attending physician: Rich Rader MD Consults: 04/18/18 21:30 Consult Physician Stat Consulting Provider: Osei Stewart Consult Reason/Comments: Fever, Hx of immune deficiency Do you want consulting provider notified?: Yes Primary care physician: Physician Nonstaff Hospital Course: 67-year-old female with a past medical history of adrenal insufficiency, hypothyroidism, depression and anxiety and common variable immunodeficiency disease that presents to the ER with chief complaint of 3 days of intermittent fevers and rigors, along with mild left flank and lower abdominal pain and severe nausea. The patient has chronic lower abdominal and pelvic pain and is on chronic opioids. The patient has been on IVIg replacement therapy for several years. After the last infusion she thought she was getting a reaction from the infusion. After the infusion she began feeling increasingly fatigued and weak and has been having ongoing fevers or chills. She denies any sore throat, cold-like symptoms. She does report a history of chronic cough and does note some dyspnea on exertion. The patient denies any urinary symptoms with the exception of dark urine, the patient subsequently presented here due to concern for sepsis that she's had this previously. In the ER she had a comprehensive workup including CBc, cmp and those were within normal limits. CT abdomen and pelvis showed mild splenomegaly without any acute process. She was started on empiric IV antibiotics with Rocephin, given several fluid boluses and was subsequently admitted to the hospital for further evaluation and management. Initially during the hospitalization she spiked a fever of 104 but later her temperature normalized. Chest x-ray and urinalysis were both negative for infection. Blood cultures did not reveal any growth after 48 hours. She was continued on Rocephin. Symptomatically she felt much better over the course of the hospitalization. She was seen in consultation with infectious disease Dr. Stewart who recommended continuing the Rocephin. Dr. Stewart also advised to discharge patient on ceftin to complete 1 week of treatment. Patient is agreeable to this plan. Patient will be discharged home in stable condition. She was instructed to follow-up with her primary care physician as soon as possible after discharge. She was also told to come back to emergency department if she has any recurrent fevers or chills. Patient Condition at Discharge: Stable Plan - Discharge Summary New Discharge Prescriptions: New Cefuroxime [Ceftin] 250 mg PO BID #10 tablet Continue Metoclopramide [Reglan] 10 mg PO Q8HR PRN PRN Reason: Nausea Levothyroxine Sodium [Synthroid] 37.5 mcg PO OTOOLE Gabapentin [Neurontin] 400 mg PO BID Fluconazole [Diflucan] 150 mg PO Q7D oxyCODONE HCL 30 mg PO Q6HR PRN PRN Reason: Pain clonazePAM [KlonoPIN] 0.5 mg PO BID PRN PRN Reason: Anxiety Levothyroxine Sodium [Synthroid] 75 mcg PO MOTUWETHFRSA Topiramate [Topamax] 50 mg PO HS Nortriptyline HCl [Pamelor] 25 mg PO DAILY Ergocalciferol [Vitamin D2 (DRISDOL)] 50,000 unit PO Q7D buPROPion HCL [Wellbutrin SR] 150 mg PO BID Gabapentin [Neurontin] 400 mg PO BID Hydrocortisone [Cortef] 20 mg PO HS Hydrocortisone [Cortef] 30 mg PO QAM Discharge Medication List Ergocalciferol [Vitamin D2 (DRISDOL)] 50,000 unit PO Q7D 04/18/18 [History] Fluconazole [Diflucan] 150 mg PO Q7D 04/18/18 [History] Gabapentin [Neurontin] 400 mg PO BID 04/18/18 [History] Gabapentin [Neurontin] 400 mg PO BID 04/18/18 [History] Hydrocortisone [Cortef] 20 mg PO HS 04/18/18 [History] Hydrocortisone [Cortef] 30 mg PO QAM 04/18/18 [History] Levothyroxine Sodium [Synthroid] 37.5 mcg PO OTOOLE 04/18/18 [History] Levothyroxine Sodium [Synthroid] 75 mcg PO MOTUWETHFRSA 04/18/18 [History] Metoclopramide [Reglan] 10 mg PO Q8HR PRN 04/18/18 [History] Nortriptyline HCl [Pamelor] 25 mg PO DAILY 04/18/18 [History] Topiramate [Topamax] 50 mg PO HS 04/18/18 [History] buPROPion HCL [Wellbutrin SR] 150 mg PO BID 04/18/18 [History] clonazePAM [KlonoPIN] 0.5 mg PO BID PRN 04/18/18 [History] oxyCODONE HCL 30 mg PO Q6HR PRN 04/18/18 [History] Cefuroxime [Ceftin] 250 mg PO BID #10 tablet 04/21/18 [Rx] Follow up Appointment(s)/Referral(s): Nonstaff,Physician [Primary Care Provider] - 1-2 days Patient Instructions/Handouts: Cefuroxime (By mouth), Fever in Adults (GEN), Weakness (GEN), Neutropenia (DC), Primary Immune Deficiency Disorder (DC)
--- NOTE | 2018-04-21 15:11 | P.PN ---
Subjective Progress Note Date: 04/21/18 67-year-old female with an extensive and complicated past medical history regarding her many years of illnesses related to her common variable immunodeficiency. She relates that she has difficulties with her immune system as well as autoimmune disease and states that she has crossover autoimmune disease with Sjogren's, rheumatoid arthritis and lupus. She has chronic pain and difficulty with her joints and a dry mouth. She's had many urinary tract infections over the years and over the last few years has had multiple bouts of pneumonia. She has interstitial cystitis and has had many interventions, including bladder distention treatments with some improvement. If she does not improve over time her urologist is even offered a cystectomy and ileostomy. The patient fortunately does not think that's a good idea at this time. The patient relates today that she is feeling slightly better but he had high-grade fevers chills and rigors at the presentation. She was very concerned because last year when she was living in [place] she had similar symptoms and went into septic shock and had an 8 week hospital stay and recovery. She relates that she can feel that her spleen is enlarged again giving her some discomfort superimposed on some of her chronic pain syndrome difficulties with abdominal and pelvic pain. She today is feeling somewhat better after hydration and antibiotic therapy years are improved and she is having no further chills or rigors. She has profound fatigue which is not new. 04/21/2018 patient is feeling better. She never feels really well overall. Fortunately her fevers have completely resolved and having no new symptoms. She agrees that she is ready for discharge. Objective - Vital Signs Vital signs: Vital Signs Temp 96.9 F L 04/21/18 07:00 Pulse 77 04/21/18 07:00 Resp 16 04/21/18 07:00 BP 137/83 04/21/18 07:00 Pulse Ox 93 L 04/21/18 07:00 Intake & Output 04/20/18 04/21/18 04/21/18 18:59 06:59 18:59 Intake Total 1200 1040 600 Balance 1200 1040 600 Weight 90.718 kg 90.718 kg Intake: Intake, IV Titration 1200 450 600 Amount Sodium Chloride 0.9% 1, 1200 450 600 000 ml @ 50 mls/hr IV . Q20H CRISTINA Rx#:[id number] Oral 590 Other: Voiding Method Toilet # Voids 6 2 4 - Exam 67-year-old woman who has obesity is apparently quite comfortable at this moment which is improved from admission HEENT: Anicteric conjunctiva are pink and moist nasal mucosa grossly intact without significant lesions, there is no thrush.oral lesions oral cavity is slightly dry Neck: The neck is supple without significant lymphadenopathy or thyromegaly. Lungs: Good bilateral air entry without significant crackles or wheezing. There is no significant bronchial sounds. There is no egophony or dullness. Heart: Regular rate and rhythm with an audible S1-S2, no S3 no S4. There is no significant murmur click or rub, PMI was nondisplaced. Abdomen: Positive bowel sounds soft and nontender without palpable masses the liver is not enlarged splenomegaly is just palpable There was no guarding or rebound. Extremities: The upper extremities have excellent pulses they are symmetric, no significant petechiae or telangiectasia. No splinter hemorrhages were noted. The lower extremities are free from significant edema. The peripheral pulses were 2+ and symmetric. Neuro: Awake alert oriented to person place and time. There are no acute new gross focal sensory motor deficits. - Labs CBC & Chem 7: 04/19/18 07:03 04/19/18 07:03 Labs: Abnormal Lab Results - Last 24 Hours (Table) 04/20/18 Range/Units 17:22 POC Glucose (mg/dL) 115 H (75-99) mg/dL Microbiology - Last 24 Hours (Table) 04/19/18 00:41 Blood Culture - Preliminary Blood No Growth after 48 hours 04/18/18 18:00 Blood Culture - Preliminary Blood No Growth after 48 hours Laboratory Results WBC 3.6 k/uL (3.8-10.6) L 04/19/18 07:03 RBC 3.97 m/uL (3.80-5.40) 04/19/18 07:03 Hgb 12.2 gm/dL (11.4-16.0) 04/19/18 07:03 Hct 36.8 % (34.0-46.0) 04/19/18 07:03 MCV 92.7 fL (80.0-100.0) 04/19/18 07:03 MCH 30.8 pg (25.0-35.0) 04/19/18 07:03 MCHC 33.2 g/dL (31.0-37.0) 04/19/18 07:03 RDW 14.0 % (11.5-15.5) 04/19/18 07:03 Plt Count 136 k/uL (150-450) L 04/19/18 07:03 Neutrophils % 41 % 04/19/18 07:03 Lymphocytes % 38 % 04/19/18 07:03 Monocytes % 15 % 04/19/18 07:03 Eosinophils % 2 % 04/19/18 07:03 Basophils % 1 % 04/19/18 07:03 Neutrophils # 1.5 k/uL (1.3-7.7) 04/19/18 07:03 Lymphocytes # 1.3 k/uL (1.0-4.8) 04/19/18 07:03 Monocytes # 0.5 k/uL (0-1.0) 04/19/18 07:03 Eosinophils # 0.1 k/uL (0-0.7) 04/19/18 07:03 Basophils # 0.0 k/uL (0-0.2) 04/19/18 07:03 PT 10.0 sec (9.0-12.0) 04/18/18 18:00 INR 1.0 (<1.2) 04/18/18 18:00 APTT 23.5 sec (22.0-30.0) 04/18/18 18:00 Sodium 139 mmol/L (137-145) 04/19/18 07:03 Potassium 4.6 mmol/L (3.5-5.1) 04/19/18 07:03 Chloride 108 mmol/L (98-107) H 04/19/18 07:03 Carbon Dioxide 23 mmol/L (22-30) 04/19/18 07:03 Anion Gap 8 mmol/L 04/19/18 07:03 BUN 14 mg/dL (7-17) 04/19/18 07:03 Creatinine 0.85 mg/dL (0.52-1.04) 04/19/18 07:03 Est GFR (CKD-EPI)AfAm 82 (>60 ml/min/1.73 sqM) 04/19/18 07:03 Est GFR (CKD-EPI)NonAf 71 (>60 ml/min/1.73 sqM) 04/19/18 07:03 Glucose 97 mg/dL (74-99) 04/19/18 07:03 POC Glucose (mg/dL) 115 mg/dL (75-99) H 04/20/18 17:22 POC Glu [employer] ID Sophia Nice 04/20/18 17:22 Plasma Lactic Acid Suhas 1.4 mmol/L (0.7-2.0) 04/18/18 18:00 Calcium 7.9 mg/dL (8.4-10.2) L 04/19/18 07:03 Total Bilirubin 0.4 mg/dL (0.2-1.3) 04/19/18 07:03 AST 39 U/L (14-36) H 04/19/18 07:03 ALT 33 U/L (9-52) 04/19/18 07:03 Alkaline Phosphatase 57 U/L (38-126) 04/19/18 07:03 Total Creatine Kinase 81 U/L (30-135) 04/18/18 18:00 CK-MB (CK-2) 0.5 ng/mL (0.0-2.4) 04/18/18 18:00 CK-MB (CK-2) Rel Index 0.6 04/18/18 18:00 Troponin I <0.012 ng/mL (0.000-0.034) 04/18/18 18:00 Total Protein 5.6 g/dL (6.3-8.2) L 04/19/18 07:03 Albumin 2.9 g/dL (3.5-5.0) L 04/19/18 07:03 Urine Color Yellow 04/18/18 19:30 Urine Appearance Clear (Clear) 04/18/18 19:30 Urine pH 7.0 (5.0-8.0) 04/18/18 19:30 Ur Specific [place] 1.014 (1.001-1.035) 04/18/18 19:30 Urine Protein Negative (Negative) 04/18/18 19:30 Urine Glucose (UA) Negative (Negative) 04/18/18 19:30 Urine Ketones Negative (Negative) 04/18/18 19:30 Urine Blood Negative (Negative) 04/18/18 19:30 Urine Nitrite Negative (Negative) 04/18/18 19:30 Urine Bilirubin Negative (Negative) 04/18/18 19:30 Urine Urobilinogen <2.0 mg/dL (<2.0) 04/18/18 19:30 Ur Leukocyte Esterase Trace (Negative) H 04/18/18 19:30 Urine RBC 2 /hpf (0-5) 04/18/18 19:30 Urine WBC 3 /hpf (0-5) 04/18/18 19:30 Ur Squamous Epith Cells <1 /hpf (0-4) 04/18/18 19:30 Urine Bacteria Rare /hpf (None) H 04/18/18 19:30 Urine Mucus Rare /hpf (None) H 04/18/18 19:30 Microbiology 04/19/18 00:41 Blood Blood Culture - Preliminary No Growth after 48 hours 04/18/18 18:00 Blood Blood Culture - Preliminary No Growth after 48 hours 04/18/18 19:30 Urine,Voided Urine Culture - Final Assessment and Plan (1) Combined variable immunodeficiency Narrative/Plan: 67-year-old female presents to the emergency center from home with significant weakness fever chills rigors have been going on for about 3 days. She was developing some left abdominal pain and left flank pain. it was associated with some nausea and generalized malaise. She does take chronic pain medicationand found that that without pain. Upon presentation she had a high-grade fever 103.9, 102.3 overnight. Because of her feverthe infectious diseases consultation was requested. The patient does have a known history of common variable insufficiency and she is at great risk for underlying infections. However the patient relates that her fever started directly after she did her most recent dose of subcutaneous immunoglobulin. Fever and injection site irritation of the most common complications of this infusion therapy. However fever nearly of 104 is somewhat unusual and so have significant concerns of potential underlying infection. She received a dose of Rocephin and is only showing some improvement. Cultures are in process she does have a history of chronic urinary infections and would continue Rocephin for now until urine cultures are available. If she does improve it would be the option of transitioning to oral cefuroxime to complete 7 days orally 500 mg orally every 12 hours. If possible she could've always follow-up in the outpatient infectious diseases office, we may be able to work with her international editorial producer in [place] to supply her subcutaneous immunoglobulin While she is is staying in [place] 04/21/2018 patient is much improved. No further fevers. Responded well to antibiotic therapy and supportive care. She will start cefuroxime 500 mg every 12 hours for 5 days and she arrives home. She will be going back to [place] very soon. I suggested that she could talk with her international editorial producer in [place] and can work with us here in [facility] and globulin locally so she does not need to be transported. Current Visit: Yes Status: Acute Code(s): D83.9 - COMMON VARIABLE IMMUNODEFICIENCY, UNSPECIFIED SNOMED Code(s): 983397162 (2) Adrenal insufficiency Current Visit: Yes Status: Acute Code(s): E27.40 - UNSPECIFIED ADRENOCORTICAL INSUFFICIENCY SNOMED Code(s): 379864350 (3) Fever Current Visit: Yes Status: Acute Code(s): R50.9 - FEVER, UNSPECIFIED SNOMED Code(s): 925804965 (4) Weakness Current Visit: Yes Status: Acute Code(s): R53.1 - WEAKNESS SNOMED Code(s) : 41811480
[2018-04-21] MEDS ORDERED: NORTRIPTYLINE 25 MG CAP PO SCH (21:00)
[2018-04-22] MEDS ORDERED: FLUCONAZOLE 150 MG TAB PO SCH (09:00)
[2018-04-22] MEDS ORDERED: ERGOCALCIFEROL 50,000 UNIT CAP PO SCH (09:00)
== END 2018-04-21 15:16 | disposition home or self-care (01) | DRG 864 ==
LOC: EC 17:08 → 5ONC 21:55
PROVIDERS: ADMIT Family Medicine; ATTEND Family Medicine
DX: R50.9 Fever, unspecified (principal); R65.10 Systemic inflammatory response syndrome (SIRS) of non-infectious origin without acute organ dysfunction; D83.9 Common variable immunodeficiency, unspecified; E27.40 Unspecified adrenocortical insufficiency; E03.9 Hypothyroidism, unspecified; F32.9 Major depressive disorder, single episode, unspecified; F41.9 Anxiety disorder, unspecified; G89.4 Chronic pain syndrome; M06.9 Rheumatoid arthritis, unspecified; N30.10 Interstitial cystitis (chronic) without hematuria; Z79.891 Long term (current) use of opiate analgesic; Z90.710 Acquired absence of both cervix and uterus; R53.83 Other fatigue; R68.2 Dry mouth, unspecified; E66.9 Obesity, unspecified; Z68.33 Body mass index [BMI] 33.0-33.9, adult; Z88.1 Allergy status to other antibiotic agents; Z66 Do not resuscitate; Z79.890 Hormone replacement therapy; Z79.899 Other long term (current) drug therapy; Z87.440 Personal history of urinary (tract) infections; Z87.01 Personal history of pneumonia (recurrent); Z83.49 Family history of other endocrine, nutritional and metabolic diseases; Z91.81 History of falling; Z98.1 Arthrodesis status; R53.1 Weakness
CPT/HCPCS: 36415; 71046; 74177; 80053; 81001; 82550; 82553; 83605; 84484; 85025; 85610; 85730; 87040; 87086; 93005; 94760; 96374; 96375; 99285

== ENCOUNTER 2018-05-19 16:01 | Inpatient (IN) | payer MEDICARE, BC ==
[2018-05-19] MEDS ORDERED: ACETAMINOPHEN TAB 500 MG TAB PO STA (16:55)
[2018-05-19] MEDS: SODIUM CHLORIDE 0.9% 500 ML IV SCH ×4 (17:18→18:59)
[2018-05-19 17:32] LABS: Basophils % (A) 0 %; Eosinophils # (A) 0.1 k/uL (0-0.7); Eosinophils % (A) 0 %; HCT 40.8 % (34.0-46.0); HGB 12.8 gm/dL (11.4-16.0); Lymphocytes # (A) 1.1 k/uL (1.0-4.8); Lymphocytes % (A) 7 %; MCHC 31.5 g/dL (31.0-37.0); MCV 95.4 fL (80.0-100.0); Mean Platelet Volume 6.2; Monocytes # (A) 0.8 k/uL (0-1.0); Monocytes % (A) 5 %; Neutrophils # (A) 13.3 k/uL (1.3-7.7); Neutrophils % (A) 87 %; Platelet Count 233 k/uL (150-450); RBC 4.28 m/uL (3.80-5.40); RDW 14.2 % (11.5-15.5); WBC 15.4 k/uL (3.8-10.6)
--- NOTE | 2018-05-19 17:34 | XR ---
EXAMINATION TYPE: XR chest 2V DATE OF EXAM: 05/19/2018 COMPARISON: Prior chest 04/18/2018 HISTORY: Fever TECHNIQUE: Frontal and lateral views of the chest are obtained. FINDINGS: There is no focal air space opacity, pleural effusion, or pneumothorax seen. The cardiac silhouette size is within normal limits. The osseous structures are intact. There are overlying car diac leads. Patient is rotated. Some minimal basilar atelectasis is suspected. IMPRESSION: Minimal basilar atelectasis is suspected, follow-up as indicated.
[2018-05-19 17:36] LABS: Albumin 3.8 g/dL (3.5-5.0); Calcium 8.8 mg/dL (8.4-10.2); Potassium 4.3 mmol/L (3.5-5.1); Total Bilirubin 0.4 mg/dL (0.2-1.3); Total Protein 6.6 g/dL (6.3-8.2)
[2018-05-19 17:37] LABS: Partial Thromboplastin Time 22.9 sec (22.0-30.0); Prothrombin Time 9.8 sec (9.0-12.0)
[2018-05-19 18:09] LABS: Appearance,Urine Clear (Clear); Bilirubin,Urine Negative (Negative); Blood,Urine Negative (Negative); Color,Urine Yellow; Glucose,Urine (UA) Negative (Negative); Ketones,Urine Negative (Negative); Leukocyte Esterase,Urine Negative (Negative); Nitrite,Urine Negative (Negative); Protein,Urine Negative (Negative); Specific Gravity,Urine 1.009 (1.001-1.035); Urobilinogen,Urine <2.0 mg/dL (<2.0)
--- NOTE | 2018-05-19 18:30 | ED ---
General Adult HPI - General Chief complaint: Fever Stated complaint: sepsis Time Seen by Provider: 05/19/18 16:55 Source: patient Mode of arrival: ambulatory Limitations: no limitations - History of Present Illness Initial comments: Prisca is a 67-year-old female with a history significant for recent admission for sepsis of unknown source and past medical history significant for adrenal insufficiency, hypothyroidism, depression and anxiety and common variable immunodeficiency disease. Patient presented to the ER today for evaluation of fevers, Marlyn's and fatigue. Patient reports that last month she experienced similar symptoms and ended up being admitted to the hospital for sepsis of unknown cause. Patient was treated with IV antibiotics and discharged home on oral antibiotics. Patient reports that she's not certain what the cause of her sepsis was. She states that she felt somewhat better after the antibiotics but remained fatigued. She states that over the past 3 days she's been progressively more fatigued, had decreased appetite, had a subjective fever, chills and Marlyn's. Patient reports that yesterday she was able to spend time with her sister and into her usual activities of daily living however today she was too fatigued to get out of bed which prompted her sister to bring her to the ER for further evaluation. Since her previous discharge patient is followed with Dr. Miller and is scheduled to see him again tomorrow however due to her overwhelming fatigue, fever and rigors she chose to come to the ER to be evaluated tonight. Patient denies any chest pain or shortness of breath. She does report a mild cough but states that this is been chronic in nature and unchanged recently. Patient denies any headache, vision changes, runny or stuffy nose, any sore throat or trouble swallowing, any chest pain, shortness of breath, she does report left upper quadrant abdominal pain but this again is chronic in nature and unchanged recently. She denies any change in bowel or bladder habits, she denies any rashes or any numbness or tingling in her extremities. The patient does receive immunoglobulin infusions every 7-10 days. Her most recent infusion was Sunday of last week. - Related Data Home Medications Medication Instructions Recorded Confirmed Ergocalciferol [Vitamin D2 50,000 unit PO Q7D 04/18/18 05/19/18 (DRISDOL)] Hydrocortisone [Cortef] 20 mg PO HS 04/18/18 05/19/18 Hydrocortisone [Cortef] 30 mg PO QAM 04/18/18 05/19/18 Levothyroxine Sodium [Synthroid] 37.5 mcg PO OTOOLE 04/18/18 05/19/18 Levothyroxine Sodium [Synthroid] 75 mcg PO MOTUWETHFRSA 04/18/18 05/19/18 Nortriptyline HCl [Pamelor] 25 mg PO DAILY 04/18/18 05/19/18 Topiramate [Topamax] 50 mg PO HS 04/18/18 05/19/18 buPROPion HCL [Wellbutrin SR] 150 mg PO BID 04/18/18 05/19/18 clonazePAM [KlonoPIN] 1 mg PO DAILY 04/18/18 05/19/18 oxyCODONE HCL 30 mg PO Q4H PRN 04/18/18 05/19/18 Gabapentin 600 mg PO TID 05/19/18 05/19/18 Hizentra 15 g SQ Q7D 05/19/18 05/19/18 Liothyronine Sodium [Cytomel] 5 mcg PO DAILY 05/19/18 05/19/18 Ondansetron [Zofran] 4 mg PO Q12HR PRN 05/19/18 05/19/18 Vilazodone HCl [Viibryd] 40 mg PO QAM 05/19/18 05/19/18 Allergies Allergy/AdvReac Type Severity Reaction Status Date / Time ciprofloxacin [From Cipro] Allergy Rash/Hives Verified 05/19/18 17:54 levofloxacin [From Levaquin] Allergy Rash/Hives Verified 05/19/18 17:54 quinine Allergy ruptures Verified 05/19/18 17:54 tendons Review of Systems ROS Statement: Those systems with pertinent positive or pertinent negative responses have been documented in the HPI. ROS Other: All systems not noted in ROS Statement are negative. Constitutional: Reports: fever, chills, weakness (Generalized) Eyes: Denies: eye pain ENT: Denies: ear pain, throat pain Respiratory: Reports: cough (Chronic). Denies: dyspnea Cardiovascular: Denies: chest pain, palpitations, dyspnea on exertion Endocrine: Reports: fatigue Gastrointestinal: Reports: abdominal pain (Left upper quadrant). Denies: nausea , vomiting Genitourinary: Denies: urgency, dysuria, frequency Musculoskeletal: Denies: back pain Skin: Denies: rash Neurological: Denies: headache Psychiatric: Reports: anxiety Hematological/Lymphatic: Denies: easy bleeding, easy bruising Past Medical History Past Medical History: Thyroid Disorder Additional Past Medical History / Comment(s): Gastro, sepsis, adrenal insufficiency, hypothyroidism, depression and anxiety, common variable immunodeficiency disease History of Any Multi-Drug Resistant Organisms: MRSA Date of last positivie culture/infection: 2007 MDRO Source:: back Past Surgical History: Tonsillectomy Additional Past Surgical History / Comment(s): thyroidectomy, patial intestines removed, abd surgeries Past Anesthesia/Blood Transfusion Reactions: No Reported Reaction Past Psychological History: No Psychological Hx Reported Smoking Status: Never smoker Past Alcohol Use History: None Reported Past Drug Use History: None Reported - Past Family History Mother Family Medical History: Thyroid Disorder General Exam Limitations: no limitations General appearance: alert, other (Appears uncomfortable) Head exam: Present: atraumatic Eye exam: Present: normal appearance, PERRL ENT exam: Present: mucous membranes dry Neck exam: Present: normal inspection Respiratory exam: Present: normal lung sounds bilaterally. Absent: respiratory distress Cardiovascular Exam: Present: normal rhythm, tachycardia GI/Abdominal exam: Present: soft. Absent: distended Rectal exam: Present: deferred Extremities exam: Present: normal inspection Back exam: Present: normal inspection Neurological exam: Present: alert, oriented X3 Psychiatric exam: Present: flat affect Skin exam: Present: warm, dry, intact Course Vital Signs 05/19/18 05/19/18 05/19/18 16:27 17:27 18:03 Temperature 100.2 F H 99.4 F Pulse Rate 129 H 113 H 103 H Respiratory 20 20 18 Rate Blood Pressure 150/92 140/81 140/80 O2 Sat by Pulse 93 L 93 L 93 L Oximetry - Reevaluation(s) Reevaluation #1: 05/19/18 18:45 Patient was reevaluated, heart rate has improved to 100, blood pressure is stable, patient reports feeling unwell but cannot further describe how she is feeling. Medical Decision Making - Medical Decision Making The patient was seen and evaluated, history was obtained from the patient, her sister at bedside as well as review of her medical record Patient with a complicated past medical history including common variable immunodeficiency, follows with rheumatology as well as infectious disease. Recent admission for Sirs as a source for sepsis was never identified. Patient did improve with IV Rocephin and was discharged home on oral antibiotics. On arrival the patient is noted to have an oral to [employer] of 100.2, be tachycardic with a normal blood pressure A full sepsis workup was ordered Labs reveal leukocytosis with a white blood cell count 15.4 Chest x-ray reveals no acute process View of medical record reveals the patient was previously treated with Rocephin , a dose of Rocephin was ordered empirically for this patient Workup in the ER reveals no acute cause of Sirs, patient care was discussed with Dr. Orozco who previously admitted the patient. He agrees with plan for placing the patient in observation with IV Rocephin and a consult to Dr. Stewart infectious disease. - Lab Data Result diagrams: 05/19/18 17:03 05/19/18 17:03 Lab Results 05/19/18 05/19/18 05/19/18 Range/Units 17:03 17:03 17:03 WBC 15.4 H (3.8-10.6) k/uL RBC 4.28 (3.80-5.40) m/uL Hgb 12.8 (11.4-16.0) gm/dL Hct 40.8 (34.0-46.0) % MCV 95.4 (80.0-100.0) fL MCH 30.0 (25.0-35.0) pg MCHC 31.5 (31.0-37.0) g/dL RDW 14.2 (11.5-15.5) % Plt Count 233 (150-450) k/uL Neutrophils % 87 % Lymphocytes % 7 % Monocytes % 5 % Eosinophils % 0 % Basophils % 0 % Neutrophils # 13.3 H (1.3-7.7) k/uL Lymphocytes # 1.1 (1.0-4.8) k/uL Monocytes # 0.8 (0-1.0) k/uL Eosinophils # 0.1 (0-0.7) k/uL Basophils # 0.0 (0-0.2) k/uL PT (9.0-12.0) sec INR (<1.2) APTT (22.0-30.0) sec Sodium 135 L (137-145) mmol/L Potassium 4.3 (3.5-5.1) mmol/L Chloride 102 (98-107) mmol/L Carbon Dioxide 24 (22-30) mmol/L Anion Gap 9 mmol/L BUN 13 (7-17) mg/dL Creatinine 0.80 (0.52-1.04) mg/dL Est GFR (CKD-EPI)AfAm 88 (>60 ml/min/1.73 sqM) Est GFR (CKD-EPI)NonAf 76 (>60 ml/min/1.73 sqM) Glucose 99 (74-99) mg/dL Plasma Lactic Acid Suhas 1.1 (0.7-2.0) mmol/L Calcium 8.8 (8.4-10.2) mg/dL Total Bilirubin 0.4 (0.2-1.3) mg/dL AST 26 (14-36) U/L ALT 30 (9-52) U/L Alkaline Phosphatase 86 (38-126) U/L Troponin I (0.000-0.034) ng/mL Total Protein 6.6 (6.3-8.2) g/dL Albumin 3.8 (3.5-5.0) g/dL Urine Color Urine Appearance (Clear) Urine pH (5.0-8.0) Ur Specific [place] (1.001-1.035) Urine Protein (Negative) Urine Glucose (UA) (Negative) Urine Ketones (Negative) Urine Blood (Negative) Urine Nitrite (Negative) Urine Bilirubin (Negative) Urine Urobilinogen (<2.0) mg/dL Ur Leukocyte Esterase (Negative) 05/19/18 05/19/18 05/19/18 Range/Units 17:03 17:03 17:55 WBC (3.8-10.6) k/uL RBC (3.80-5.40) m/uL Hgb (11.4-16.0) gm/dL Hct (34.0-46.0) % MCV (80.0-100.0) fL MCH (25.0-35.0) pg MCHC (31.0-37.0) g/dL RDW (11.5-15.5) % Plt Count (150-450) k/uL Neutrophils % % Lymphocytes % % Monocytes % % Eosinophils % % Basophils % % Neutrophils # (1.3-7.7) k/uL Lymphocytes # (1.0-4.8) k/uL Monocytes # (0-1.0) k/uL Eosinophils # (0-0.7) k/uL Basophils # (0-0.2) k/uL PT 9.8 (9.0-12.0) sec INR 1.0 (<1.2) APTT 22.9 (22.0-30.0) sec Sodium (137-145) mmol/L Potassium (3.5-5.1) mmol/L Chloride (98-107) mmol/L Carbon Dioxide (22-30) mmol/L Anion Gap mmol/L BUN (7-17) mg/dL Creatinine (0.52-1.04) mg/dL Est GFR (CKD-EPI)AfAm (>60 ml/min/1.73 sqM) Est GFR (CKD-EPI)NonAf (>60 ml/min/1.73 sqM) Glucose (74-99) mg/dL Plasma Lactic Acid Suhas (0.7-2.0) mmol/L Calcium (8.4-10.2) mg/dL Total Bilirubin (0.2-1.3) mg/dL AST (14-36) U/L ALT (9-52) U/L Alkaline Phosphatase (38-126) U/L Troponin I <0.012 (0.000-0.034) ng/mL Total Protein (6.3-8.2) g/dL Albumin (3.5-5.0) g/dL Urine Color Yellow Urine Appearance Clear (Clear) Urine pH 8.0 (5.0-8.0) Ur Specific [place] 1.009 (1.001-1.035) Urine Protein Negative (Negative) Urine Glucose (UA) Negative (Negative) Urine Ketones Negative (Negative) Urine Blood Negative (Negative) Urine Nitrite Negative (Negative) Urine Bilirubin Negative (Negative) Urine Urobilinogen <2.0 (<2.0) mg/dL Ur Leukocyte Esterase Negative (Negative) Disposition Clinical Impression: SIRS (systemic inflammatory response syndrome) Disposition: ADMITTED IP TO THIS [facility] Condition: Good Referrals: Nonstaff,Physician [Primary Care Provider] - 1-2 days Time of Disposition: 18:46 Decision Time: 18:46
[2018-05-19] MEDS ORDERED: ACETAMINOPHEN TAB 325 MG TAB PO PRN (18:36)
[2018-05-19] MEDS ORDERED: NALOXONE 0.4 MG/ML 1 ML VIAL IV PRN (18:36)
[2018-05-19] MEDS ORDERED: ONDANSETRON 4 MG/2 ML VIAL IVP PRN (18:36)
[2018-05-19] MEDS ORDERED: IBUPROFEN 400 MG TAB PO PRN (18:36)
[2018-05-19] MEDS: HYDROmorphone 2 MG TAB PO PRN ×2 (18:59→23:25)
[2018-05-19] MEDS: cefTRIAXone IN SWFI 1,000 MG/10 ML SYRINGE IVP SCH (20:13)
[2018-05-19] MEDS ORDERED: SODIUM CHLORIDE 0.9% 2,000 ML IV ONE (21:52)
[2018-05-19] MEDS ORDERED: LEVOTHYROXINE 75 MCG TAB PO SCH (22:00)
--- NOTE | 2018-05-19 22:09 | P.HPIM ---
History of Present Illness H&P Date: 05/19/18 Chief Complaint: Fever, fatigue 67-year-old female with history of adrenal insufficiency and common variable immunodeficiency syndrome and hypothyroidism Patient presented to the hospital with 3 day history of fevers, fatigue and Marlyn's. Patient last dose of IVIG was 1 week ago. Patient otherwise denies any coughing or dysuria. She denies any headaches or neck stiffness. Patient denies any nausea or vomiting. Patient denies any changes in her bowel habits or urinary habits. Patient has been traveling between here in [place]. She was admitted to the hospital a month ago for management of similar symptoms she was managed with empiric antibiotics with Rocephin, ID specialty was assisting in her management patient was discharged eventually on short course of Ceftin and and no clear source of infection was identified. Patient blood cultures at that time showed no growth after 48 hours. This time she is presented with similar symptoms as mentioned above without clear source of underlying infection. Blood cultures were taken in the ED, urinalysis unremarkable, chest x-ray unremarkable. Patient will be admitted for empiric antibiotic therapy and stress dose of hydrocortisone and aggressive IV fluid hydration and will be monitored and follow-up on blood culture results. ID will be consult Review of Systems Pertinent positives as noted in HPI. All other systems were reviewed and are negative Past Medical History Past Medical History: Thyroid Disorder Additional Past Medical History / Comment(s): Gastro, sepsis, adrenal insufficiency, hypothyroidism, depression and anxiety, common variable immunodeficiency disease History of Any Multi-Drug Resistant Organisms: MRSA Date of last positivie culture/infection: 2007 MDRO Source:: back Past Surgical History: Tonsillectomy Additional Past Surgical History / Comment(s): thyroidectomy, patial intestines removed, abd surgeries Past Anesthesia/Blood Transfusion Reactions: No Reported Reaction Past Psychological History: No Psychological Hx Reported Smoking Status: Never smoker Past Alcohol Use History: None Reported Past Drug Use History: None Reported - Past Family History Mother Family Medical History: Thyroid Disorder Medications and Allergies Home Medications Medication Instructions Recorded Confirmed Type Ergocalciferol [Vitamin D2 50,000 unit PO Q7D 04/18/18 05/19/18 History (DRISDOL)] Hydrocortisone [Cortef] 20 mg PO HS 04/18/18 05/19/18 History Hydrocortisone [Cortef] 30 mg PO QAM 04/18/18 05/19/18 History Levothyroxine Sodium [Synthroid] 37.5 mcg PO OTOOLE 04/18/18 05/19/18 History Levothyroxine Sodium [Synthroid] 75 mcg PO MOTUWETHFRSA 04/18/18 05/19/18 History Nortriptyline HCl [Pamelor] 25 mg PO DAILY 04/18/18 05/19/18 History Topiramate [Topamax] 50 mg PO HS 04/18/18 05/19/18 History buPROPion HCL [Wellbutrin SR] 150 mg PO BID 04/18/18 05/19/18 History clonazePAM [KlonoPIN] 1 mg PO DAILY 04/18/18 05/19/18 History oxyCODONE HCL 30 mg PO Q4H PRN 04/18/18 05/19/18 History Gabapentin 600 mg PO TID 05/19/18 05/19/18 History Hizentra 15 g SQ Q7D 05/19/18 05/19/18 History Liothyronine Sodium [Cytomel] 5 mcg PO DAILY 05/19/18 05/19/18 History Ondansetron [Zofran] 4 mg PO Q12HR PRN 05/19/18 05/19/18 History Vilazodone HCl [Viibryd] 40 mg PO QAM 05/19/18 05/19/18 History Allergies Allergy/AdvReac Type Severity Reaction Status Date / Time ciprofloxacin [From Cipro] Allergy Rash/Hives Verified 05/19/18 17:54 levofloxacin [From Levaquin] Allergy Rash/Hives Verified 05/19/18 17:54 quinine Allergy ruptures Verified 05/19/18 17:54 tendons Physical Exam Vitals: Vital Signs Temp Pulse Resp BP Pulse Ox 05/19/18 18:54 99 F 99 20 142/80 94 L 05/19/18 18:03 99.4 F 103 H 18 140/80 93 L 05/19/18 17:27 113 H 20 140/81 93 L 05/19/18 16:27 100.2 F H 129 H 20 150/92 93 L Intake and Output 05/19/18 05/19/18 05/19/18 06:59 14:59 22:59 Other: Weight 108.227 kg Constitutional: No acute distress, conversant, pleasant Eyes: Anicteric sclerae, moist conjunctiva, no lid-lag Pupils equal round reactive to light ENMT: NC/AT, no neck stiffness Oropharynx clear, no erythema, or exudates Neck: Supple, FROM, no masses, or JVD No carotid bruits No thyromegaly Lungs: Clear to auscultation Clear to percussion Normal respiratory effort, no accessory muscle use Cardiovascular: Heart regular in rate and rhythm, No murmurs, gallops, or rubs No peripheral edema Abdominal: Diffusely tender to palpation with voluntary guarding patient reports that this is her baseline Abdomen moving with respiration Normoactive bowel sounds No hepatomegaly, No splenomegaly No palpable mass No abdominal wall hernia noted Skin: Normal temperature, tone, texture, turgor No induration No subcutaneous nodules No rash, lesions No ulcers Extremities: No digital cyanosis No clubbing Pedal pulses intact and symmetrical Radial pulses intact and symmetrical No calf tenderness Psychiatric: Alert and oriented to person, place and time Appropriate affect fair judgment Neuro Muscles Strength 5/5 in all 4 extremities Sensation to light touch grossly present throughout Cranial nerves II-XII grossly intact No focal sensory deficits Lymphatics: no palpable cervical or supraclavicular , or inguinal lymph nodes Results CBC & Chem 7: 05/19/18 17:03 05/19/18 17:03 Labs: Abnormal Lab Results - Last 24 Hours (Table) 05/19/18 05/19/18 Range/Units 17:03 17:03 WBC 15.4 H (3.8-10.6) k/uL Neutrophils # 13.3 H (1.3-7.7) k/uL Sodium 135 L (137-145) mmol/L Assessment and Plan Assessment: 67-year-old female with past medical history of adrenal insufficiency,, common viable immune deficiency disease, patient is admitted to the inpatient with anticipated length of stay of more than 2 days for fever and sirs syndrome of unknown underlying cause patient have cultures withdrawn and will be given empiric antibiotics and stress dose of steroid. Plan: Source syndrome without clear underlying cause Patient with history of adrenal insufficiency and common variable immune deficiency Cultures taken Chest x-ray unremarkable IV Rocephin ID consult Aggressive IV fluid hydration Stress dose of hydrocortisone Urinalysis unremarkable Lactic acid unremarkable Chronic abdominal pain Pain control Hypothyroidism continue with levothyroxine Check TSH Depression continue home meds DVT prophylaxis on heparin subcu Preformed a thorough record review from recent hospitalization patient was hospitalized 1 month ago for similar presentation she was managed with Rocephin and showed great improvement in her symptoms and was discharged on a course of Ceftin that she completed, ID was following Dr. Stewart Surrogate decision-maker: Patient brother right CODE STATUS: Full code Anticipated discharge: 48-[address]: Home A total of 60 minutes was spent on the care of this complex patient more than 50 % of the time was spent in counseling and care coordination.
[2018-05-19] MEDS: GABAPENTIN 300 MG CAP PO SCH (23:12)
[2018-05-19] MEDS: HYDROCORTISONE SUCCINATE 100 MG/2 ML VIAL IV SCH (23:13)
[2018-05-19] MEDS: HEPARIN SODIUM,PORCINE 5,000 UNIT/ML 1 ML VIAL SQ SCH (23:13)
[2018-05-20 00:05] VITALS: BMI 36.2
[2018-05-20] MEDS: SODIUM CHLORIDE 0.9% 1,000 ML IV SCH ×4 (02:04→21:57)
[2018-05-20] MEDS: MORPHINE SULFATE 4 MG/ML SYRINGE IVP PRN ×2 (02:08→08:03)
[2018-05-20] MEDS: LEVOTHYROXINE 75 MCG TAB PO SCH (05:53)
[2018-05-20] MEDS: HYDROCORTISONE SUCCINATE 100 MG/2 ML VIAL IV SCH ×4 (05:53→17:24)
[2018-05-20] MEDS: cefTRIAXone IN SWFI 1,000 MG/10 ML SYRINGE IVP SCH (07:58)
[2018-05-20] MEDS: HEPARIN SODIUM,PORCINE 5,000 UNIT/ML 1 ML VIAL SQ SCH ×2 (07:58→15:59)
[2018-05-20] MEDS: buPROPion SR 150 MG TABLET.ER PO SCH ×2 (07:59→21:24)
[2018-05-20] MEDS: NORTRIPTYLINE 25 MG CAP PO SCH (08:00)
[2018-05-20] MEDS: LIOTHYRONINE SODIUM 5 MCG TAB PO SCH (08:00)
[2018-05-20] MEDS: GABAPENTIN 300 MG CAP PO SCH ×3 (08:00→21:56)
[2018-05-20] MEDS: NON-FORMULARY DRUG (Vilazodone Hcl [Viibryd] 40 MG) PO SCH (08:01)
[2018-05-20] MEDS ORDERED: clonazePAM 0.5 MG TAB PO PRN (08:08)
[2018-05-20 08:46] LABS: Basophils % (A) 0 %; Eosinophils % (A) 0 %; HCT 37.2 % (34.0-46.0); HGB 12.2 gm/dL (11.4-16.0); Lymphocytes # (A) 0.8 k/uL (1.0-4.8); Lymphocytes % (A) 10 %; MCH 31.2 pg (25.0-35.0); MCHC 32.8 g/dL (31.0-37.0); MCV 95.1 fL (80.0-100.0); Mean Platelet Volume 6.6; Monocytes # (A) 0.4 k/uL (0-1.0); Monocytes % (A) 4 %; Neutrophils # (A) 6.7 k/uL (1.3-7.7); Neutrophils % (A) 85 %; Platelet Count 166 k/uL (150-450); RBC 3.91 m/uL (3.80-5.40); WBC 7.8 k/uL (3.8-10.6)
[2018-05-20] MEDS ORDERED: clonazePAM 1 MG TAB PO SCH (09:00)
[2018-05-20 09:38] LABS: ALT 28 U/L (9-52); AST 22 U/L (14-36); Albumin 3.3 g/dL (3.5-5.0); Alkaline Phosphatase 78 U/L (38-126); Anion Gap 8 mmol/L; Blood Urea Nitrogen 11 mg/dL (7-17); Calcium 8.2 mg/dL (8.4-10.2); Carbon Dioxide 22 mmol/L (22-30); Chloride 111 mmol/L (98-107); Glucose 117 mg/dL (74-99); Potassium 4.2 mmol/L (3.5-5.1); Sodium 141 mmol/L (137-145); Total Bilirubin 0.4 mg/dL (0.2-1.3)
[2018-05-20 10:28] LABS: T4, Free (Free Thyroxine) 0.97 ng/dL (0.78-2.19)
[2018-05-20] MEDS ORDERED: NON-FORMULARY DRUG (Oxycodone Hcl [Oxycodone Hcl] 30 MG) PO PRN (11:23)
--- NOTE | 2018-05-20 12:08 | P.PN ---
Subjective Progress Note Date: 05/20/18 Principal diagnosis: Fever Fever has resolved but patient continues to have abdominal pain especially in the left upper quadrant and the suprapubic areas. Objective - Vital Signs Vital signs: Vital Signs Temp 97.8 F 05/20/18 07:12 Pulse 94 05/20/18 07:12 Resp 18 05/20/18 07:12 BP 143/91 05/20/18 07:12 Pulse Ox 96 05/20/18 07:12 Intake & Output 05/19/18 05/20/18 05/20/18 18:59 06:59 18:59 Weight 108.227 kg 108.22 kg Other: Voiding Method Toilet # Voids 2 - Exam Constitutional: No acute distress, conversant, pleasant Eyes:Anicteric sclerae, moist conjunctiva, no lid-lag, PERRLA, ENMT: Oropharynx clear, no erythema, exudates Neck: Supple, FROM, no masses, or JVD, No carotid bruits, No thyromegaly Lungs: Clear to auscultation, Clear to percussion, Normal respiratory effort, no accessory muscle use Cardiovascular: Heart regular in rate and rhythm, No murmurs, gallops, or rubs, No peripheral edema Abdominal: diffusely tender, no guarding, rebound or rigidity, Normoactive bowel sounds, No hepatomegaly, No splenomegaly, No palpable mass Skin: Normal temperature, tone, texture, turgor, no induration, No subcutaneous nodules, No rash, lesions, No ulcers Extremities: No digital cyanosis, No clubbing, Pedal pulses intact and symmetrical, Radial pulses intact and symmetrical, No calf tenderness Psychiatric: Alert and oriented to person, place and time, appropriate affect, intact judgement Neuro: Muscles Strength 5/5 in all 4 extremities, Sensation to light touch grossly present throughout, Cranial nerves II-XII grossly intact, no focal sensory deficits - Labs CBC & Chem 7: 05/20/18 08:15 05/20/18 08:15 Labs: Abnormal Lab Results - Last 24 Hours (Table) 05/19/18 05/19/18 05/20/18 Range/Units 17:03 17:03 08:15 WBC 15.4 H (3.8-10.6) k/uL Neutrophils # 13.3 H (1.3-7.7) k/uL Lymphocytes # 0.8 L (1.0-4.8) k/uL Sodium 135 L (137-145) mmol/L Chloride (98-107) mmol/L Glucose (74-99) mg/dL Calcium (8.4-10.2) mg/dL Total Protein (6.3-8.2) g/dL Albumin (3.5-5.0) g/dL TSH (0.465-4.680) mIU/L 05/20/18 Range/Units 08:15 WBC (3.8-10.6) k/uL Neutrophils # (1.3-7.7) k/uL Lymphocytes # (1.0-4.8) k/uL Sodium (137-145) mmol/L Chloride 111 H (98-107) mmol/L Glucose 117 H (74-99) mg/dL Calcium 8.2 L (8.4-10.2) mg/dL Total Protein 6.0 L (6.3-8.2) g/dL Albumin 3.3 L (3.5-5.0) g/dL TSH 0.243 L (0.465-4.680) mIU/L Microbiology - Last 24 Hours (Table) 05/19/18 17:55 Urine Culture - Preliminary Urine,Voided Assessment and Plan Plan: FUO Patient with history of adrenal insufficiency and common variable immune deficiency Cultures taken, will follow Chest x-ray, urinalysis, lactic acid negative IV Rocephin ID consult Aggressive IV fluid hydration Stress dose of hydrocortisone Chronic abdominal pain Pain control Hypothyroidism continue with levothyroxine TSH low, cut down on levothyroxine replacement Depression continue home meds DVT prophylaxis on heparin subcu
--- NOTE | 2018-05-20 12:29 | P.CONS ---
History of Present Illness - Reason for Consult Consult date: 05/20/18 CVID, SIRS - History of Present Illness This is a 67-year-old female well known to ID service due to her extensive and complicated past medical history regarding her many years of illnesses related to her common variable immunodeficiency. She relates that she has difficulties with her immune system as well as autoimmune disease and states that she has crossover autoimmune disease with Sjogren's, rheumatoid arthritis and lupus. She has chronic pain and difficulty with her joints and a dry mouth. She's had many urinary tract infections over the years and over the last few years has had multiple bouts of pneumonia. She has interstitial cystitis and has had many interventions, including bladder distention treatments with some improvement. If she does not improve over time her urologist is even offered a cystectomy and ileostomy. Patient had a recent flights [place] and a April 18 to the at which time she was treated for Serzone with unknown source. She was on Rocephin and discharged home on cefuroxime for 5 day course. She states she completed the antibiotics and she was feeling fine but she never felt like the infection was completely cleared up and when she stopped the antibiotics she felt like she needed a few more days. 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 She states for the past 2 days she has been feeling "crummy" and yesterday she felt the onset of a temperature that was sudden onset. She complains of fever chills and rigors and increased fatigue. She also complains of generalized pain to the lower abdomen left upper quadrant and left flank area. Her last bowel movement was yesterday and this is normal she. She denies having any diarrhea. She has had decreased appetite and nausea but no vomiting. Patient complains of pain with urination. She came into [facility] emergency center where she was found to have a temperature of 100.2, leukocytosis of 15.4 which has improved to 7.8. Her heart rate on presentation was 129. Creatinine is 0.8. Urinalysis was clear nitrate and leukoesterase were negative with no sign of infection urine cultures and progress and blood cultures status received. Her lactic acid was 1.1. Troponin was negative. Chest x-ray shows minimal basilar atelectasis suspected. Patient was started on ceftriaxone and admitted to the [facility] floor and thus this consult was placed. Review of Systems All systems: negative Constitutional: Reports chills, Reports fatigue, Reports fever, Reports poor appetite, Reports weakness Eyes: denies blurred vision, denies pain Ears, nose, mouth and throat: Denies dental pain, Denies headache, Denies mouth pain, Denies sore throat Cardiovascular: Denies chest pain, Denies shortness of breath Respiratory: Denies cough, Denies cough with sputum, Denies dyspnea, Denies excessive sputum, Denies hemoptysis, Denies home oxygen, Denies wheezing Gastrointestinal: Reports abdominal pain, Reports loss of appetite, Reports nausea, Denies diarrhea, Denies vomiting Genitourinary: Reports dysuria, Denies hematuria Musculoskeletal: Denies myalgias Integumentary: Denies pruritus, Denies rash Neurological: Denies numbness, Denies weakness Psychiatric: Denies anxiety, Denies depression Endocrine: Denies fatigue, Denies weight change Past Medical History Past Medical History: Thyroid Disorder Additional Past Medical History / Comment(s): Gastro, sepsis, adrenal insufficiency, hypothyroidism, depression and anxiety, common variable immunodeficiency disease (primary immune disease) History of Any Multi-Drug Resistant Organisms: MRSA Year Discovered:: 2007 MDRO Source:: back Past Surgical History: Cholecystectomy, Tonsillectomy Additional Past Surgical History / Comment(s): thyroidectomy, partial intestines removed, abd surgeries Past Anesthesia/Blood Transfusion Reactions: No Reported Reaction Past Psychological History: Anxiety, Depression Additional Psychological History / Comment(s): single no longer able to live on her own consequently lives with her sister and [id number] in [place]. Because they travel to [place] for the summer she does come here. It is complicated because of her IVIG subcutaneous injection. She is a lifelong nonsmoker and denies any significant alcohol use no recreational drug use. No animals in the home at this time. She travels between [place] and [place]. No international travel. No experience. 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 Smoking Status: Never smoker Past Alcohol Use History: None Reported Past Drug Use History: None Reported - Past Family History Mother Family Medical History: Thyroid Disorder Medications and Allergies Home Medications Medication Instructions Recorded Confirmed Type Ergocalciferol [Vitamin D2 50,000 unit PO Q7D 04/18/18 05/19/18 History (DRISDOL)] Hydrocortisone [Cortef] 20 mg PO HS 04/18/18 05/19/18 History Hydrocortisone [Cortef] 30 mg PO QAM 04/18/18 05/19/18 History Levothyroxine Sodium [Synthroid] 37.5 mcg PO OTOOLE 04/18/18 05/19/18 History Levothyroxine Sodium [Synthroid] 75 mcg PO MOTUWETHFRSA 04/18/18 05/19/18 History Nortriptyline HCl [Pamelor] 25 mg PO DAILY 04/18/18 05/19/18 History Topiramate [Topamax] 50 mg PO HS 04/18/18 05/19/18 History buPROPion HCL [Wellbutrin SR] 150 mg PO BID 04/18/18 05/19/18 History clonazePAM [KlonoPIN] 1 mg PO DAILY 04/18/18 05/19/18 History oxyCODONE HCL 30 mg PO Q4H PRN 04/18/18 05/19/18 History Gabapentin 600 mg PO TID 05/19/18 05/19/18 History Hizentra 15 g SQ Q7D 05/19/18 05/19/18 History Liothyronine Sodium [Cytomel] 5 mcg PO DAILY 05/19/18 05/19/18 History Ondansetron [Zofran] 4 mg PO Q12HR PRN 05/19/18 05/19/18 History Vilazodone HCl [Viibryd] 40 mg PO QAM 05/19/18 05/19/18 History Allergies Allergy/AdvReac Type Severity Reaction Status Date / Time ciprofloxacin [From Cipro] Allergy Rash/Hives Verified 05/19/18 17:54 levofloxacin [From Levaquin] Allergy Rash/Hives Verified 05/19/18 17:54 quinine Allergy ruptures Verified 05/19/18 17:54 tendons Physical Exam Vitals: Vital Signs Temp Pulse Pulse Resp BP BP Pulse Ox 05/20/18 07:12 97.8 F 94 18 143/91 96 05/19/18 23:00 98.7 F 92 16 150/90 95 05/19/18 20:34 99 F 99 16 141/78 95 05/19/18 18:54 99 F 99 20 142/80 94 L 05/19/18 18:03 99.4 F 103 H 18 140/80 93 L 05/19/18 17:27 113 H 20 140/81 93 L 05/19/18 16:27 100.2 F H 129 H 20 150/92 93 L Intake and Output 05/19/18 05/20/18 05/20/18 22:59 06:59 14:59 Other: Voiding Method Toilet # Voids 2 Weight 108.227 kg 108.22 kg Gen: This is a 67-year-old female. She is in bed and appears to be comfortable. She is complaining of generalized pain but appears to be comfortable. No respiratory distress is noted. HEENT: Head is atraumatic, normocephalic. Pupils equal, round. Sclerae is anicteric. Her mucous membranes are dry. NECK: Supple. No JVD. No lymphadenopathy. No thyromegaly. LUNGS: Clear to auscultation. No wheezes or rhonchi. No intercostal retractions. HEART: Regular rate and rhythm. No murmur. ABDOMEN: Soft. Bowel sounds are present. No masses. Generalized abdominal tenderness. Left-sided flank tenderness. EXTREMITIES: No pedal edema. No calf tenderness. Dorsalis pedis +2 bilaterally. NEUROLOGICAL: Patient is awake, alert and oriented x3. No acute focal sensory motor deficits.. Results Results: Laboratory Results WBC 7.8 k/uL (3.8-10.6) 05/20/18 08:15 RBC 3.91 m/uL (3.80-5.40) 05/20/18 08:15 Hgb 12.2 gm/dL (11.4-16.0) 05/20/18 08:15 Hct 37.2 % (34.0-46.0) 05/20/18 08:15 MCV 95.1 fL (80.0-100.0) 05/20/18 08:15 MCH 31.2 pg (25.0-35.0) 05/20/18 08:15 MCHC 32.8 g/dL (31.0-37.0) 05/20/18 08:15 RDW 14.0 % (11.5-15.5) 05/20/18 08:15 Plt Count 166 k/uL (150-450) 05/20/18 08:15 Neutrophils % 85 % 05/20/18 08:15 Lymphocytes % 10 % 05/20/18 08:15 Monocytes % 4 % 05/20/18 08:15 Eosinophils % 0 % 05/20/18 08:15 Basophils % 0 % 05/20/18 08:15 Neutrophils # 6.7 k/uL (1.3-7.7) 05/20/18 08:15 Lymphocytes # 0.8 k/uL (1.0-4.8) L 05/20/18 08:15 Monocytes # 0.4 k/uL (0-1.0) 05/20/18 08:15 Eosinophils # 0.0 k/uL (0-0.7) 05/20/18 08:15 Basophils # 0.0 k/uL (0-0.2) 05/20/18 08:15 PT 9.8 sec (9.0-12.0) 05/19/18 17:03 INR 1.0 (<1.2) 05/19/18 17:03 APTT 22.9 sec (22.0-30.0) 05/19/18 17:03 Sodium 141 mmol/L (137-145) 05/20/18 08:15 Potassium 4.2 mmol/L (3.5-5.1) 05/20/18 08:15 Chloride 111 mmol/L (98-107) H 05/20/18 08:15 Carbon Dioxide 22 mmol/L (22-30) 05/20/18 08:15 Anion Gap 8 mmol/L 05/20/18 08:15 BUN 11 mg/dL (7-17) 05/20/18 08:15 Creatinine 0.71 mg/dL (0.52-1.04) 05/20/18 08:15 Est GFR (CKD-EPI)AfAm >90 (>60 ml/min/1.73 sqM) 05/20/18 08:15 Est GFR (CKD-EPI)NonAf 88 (>60 ml/min/1.73 sqM) 05/20/18 08:15 Glucose 117 mg/dL (74-99) H 05/20/18 08:15 Plasma Lactic Acid Suhas 1.1 mmol/L (0.7-2.0) 05/19/18 17:03 Calcium 8.2 mg/dL (8.4-10.2) L 05/20/18 08:15 Total Bilirubin 0.4 mg/dL (0.2-1.3) 05/20/18 08:15 AST 22 U/L (14-36) 05/20/18 08:15 ALT 28 U/L (9-52) 05/20/18 08:15 Alkaline Phosphatase 78 U/L (38-126) 05/20/18 08:15 Troponin I <0.012 ng/mL (0.000-0.034) 05/19/18 17:03 Total Protein 6.0 g/dL (6.3-8.2) L 05/20/18 08:15 Albumin 3.3 g/dL (3.5-5.0) L 05/20/18 08:15 TSH 0.243 mIU/L (0.465-4.680) L 05/20/18 08:15 Free T4 0.97 ng/dL (0.78-2.19) 05/20/18 08:15 Urine Color Yellow 05/19/18 17:55 Urine Appearance Clear (Clear) 05/19/18 17:55 Urine pH 8.0 (5.0-8.0) 05/19/18 17:55 Ur Specific [place] 1.009 (1.001-1.035) 05/19/18 17:55 Urine Protein Negative (Negative) 05/19/18 17:55 Urine Glucose (UA) Negative (Negative) 05/19/18 17:55 Urine Ketones Negative (Negative) 05/19/18 17:55 Urine Blood Negative (Negative) 05/19/18 17:55 Urine Nitrite Negative (Negative) 05/19/18 17:55 Urine Bilirubin Negative (Negative) 05/19/18 17:55 Urine Urobilinogen <2.0 mg/dL (<2.0) 05/19/18 17:55 Ur Leukocyte Esterase Negative (Negative) 05/19/18 17:55 CBC & Chem 7: 05/20/18 08:15 05/20/18 08:15 Labs: Abnormal Lab Results - Last 24 Hours (Table) 05/19/18 05/19/18 05/20/18 Range/Units 17:03 17:03 08:15 WBC 15.4 H (3.8-10.6) k/uL Neutrophils # 13.3 H (1.3-7.7) k/uL Lymphocytes # 0.8 L (1.0-4.8) k/uL Sodium 135 L (137-145) mmol/L Chloride (98-107) mmol/L Glucose (74-99) mg/dL Calcium (8.4-10.2) mg/dL Total Protein (6.3-8.2) g/dL Albumin (3.5-5.0) g/dL TSH (0.465-4.680) mIU/L 05/20/18 Range/Units 08:15 WBC (3.8-10.6) k/uL Neutrophils # (1.3-7.7) k/uL Lymphocytes # (1.0-4.8) k/uL Sodium (137-145) mmol/L Chloride 111 H (98-107) mmol/L Glucose 117 H (74-99) mg/dL Calcium 8.2 L (8.4-10.2) mg/dL Total Protein 6.0 L (6.3-8.2) g/dL Albumin 3.3 L (3.5-5.0) g/dL TSH 0.243 L (0.465-4.680) mIU/L Microbiology - Last 24 Hours (Table) 05/19/18 17:55 Urine Culture - Preliminary Urine,Voided Assessment and Plan Plan: This is a 67-year-old woman who presents with signs of SIRS without specific source of infection. She is currently on Rocephin which will be continued. Blood cultures status received. Urine culture is in progress. Continue supportive care. Further recommendations as patient progresses. The above dictated assessment and findings were discussed with Dr. Stewart. The impression and plan of care have been directed as dictated. Darlyn Thakur nurse practitioner acting as scribe for Dr. Stewart.
[2018-05-20] MEDS: oxyCODONE ER 15 MG TAB.ER.12H PO SCH ×2 (13:04→21:56)
[2018-05-20] MEDS ORDERED: TOPIRAMATE 25 MG TAB PO SCH (21:00)
--- NOTE | 2018-05-20 21:48 | P.CON ---
Consult Note - . Consult date: 05/20/18 Assessment/Plan:: his is a 67-year-old female well known to ID service due to her extensive and complicated past medical history regarding her many years of illnesses related to her common variable immunodeficiency. She relates that she has difficulties with her immune system as well as autoimmune disease and states that she has crossover autoimmune disease with Sjogren's, rheumatoid arthritis and lupus. She has chronic pain and difficulty with her joints and a dry mouth. She's had many urinary tract infections over the years and over the last few years has had multiple bouts of pneumonia. She has interstitial cystitis and has had many interventions, including bladder distention treatments with some improvement. If she does not improve over time her urologist is even offered a cystectomy and ileostomy. Patient had a recent flights [place] and a April 18 to the at which time she was treated for Serzone with unknown source. She was on Rocephin and discharged home on cefuroxime for 5 day course. She states she completed the antibiotics and she was feeling fine but she never felt like the infection was completely cleared up and when she stopped the antibiotics she felt like she needed a few more days. 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 She states for the past 2 days she has been feeling "crummy" and yesterday she felt the onset of a temperature that was sudden onset. She complains of fever chills and rigors and increased fatigue. She also complains of generalized pain to the lower abdomen left upper quadrant and left flank area. Her last bowel movement was yesterday and this is normal she. She denies having any diarrhea. She has had decreased appetite and nausea but no vomiting. Patient complains of pain with urination. She came into [facility] emergency center where she was found to have a temperature of 100.2, leukocytosis of 15.4 which has improved to 7.8. Her heart rate on presentation was 129. Creatinine is 0.8. Urinalysis was clear nitrate and leukoesterase were negative with no sign of infection urine cultures and progress and blood cultures status received. Her lactic acid was 1.1. Troponin was negative. Chest x-ray shows minimal basilar atelectasis suspected. Patient was started on ceftriaxone and admitted to the [facility] floor and thus this consult was placed. Please see the consult note is dictated by nurse practitioner Mrs. Darlyn Thakur 67-year-old woman with a complex past medical history who is transitioning between [place] and [place], is infusing her subcutaneous immunoglobulin at home. Will need a dose shortly after she gets home. Presents to Hospital feeling quite poorly now receiving some antibiotic therapy and is having some improvement. This time she is generally improving the very limited amounts of intravenous antibiotic therapy. Hopefully urine culture available in the morning which will then allow us to transition to oral antibiotic therapy pleat her treatment. She will follow-up in the office at the end of the month we will try to transition her subcutaneous immunoglobulin orders. I agree with evaluation, assessment and plan is dictated by nurse practitioner Mrs. Darlyn Thakur.
[2018-05-21] MEDS: HEPARIN SODIUM,PORCINE 5,000 UNIT/ML 1 ML VIAL SQ SCH ×2 (01:29→08:51)
[2018-05-21] MEDS: HYDROCORTISONE SUCCINATE 100 MG/2 ML VIAL IV SCH ×3 (01:29→11:05)
[2018-05-21] MEDS: SODIUM CHLORIDE 0.9% 1,000 ML IV SCH ×2 (03:52→08:52)
[2018-05-21] MEDS: LEVOTHYROXINE 75 MCG TAB PO SCH (06:20)
[2018-05-21 08:02] VITALS: BP 167/94; PULSE 81; RESP 18; TEMP 98
[2018-05-21] MEDS: oxyCODONE ER 15 MG TAB.ER.12H PO SCH (08:51)
[2018-05-21] MEDS: GABAPENTIN 300 MG CAP PO SCH (08:51)
[2018-05-21] MEDS: LIOTHYRONINE SODIUM 5 MCG TAB PO SCH (08:51)
[2018-05-21] MEDS: NORTRIPTYLINE 25 MG CAP PO SCH (08:51)
[2018-05-21] MEDS: buPROPion SR 150 MG TABLET.ER PO SCH (08:51)
[2018-05-21] MEDS: NON-FORMULARY DRUG (Vilazodone Hcl [Viibryd] 40 MG) PO SCH (08:53)
[2018-05-21] MEDS: cefTRIAXone IN SWFI 1,000 MG/10 ML SYRINGE IVP SCH (09:53)
--- NOTE | 2018-05-21 11:32 | P.DS ---
Providers Date of admission: 05/19/18 18:36 Expected date of discharge: 05/21/18 Attending physician: Zayra Orellana MD Consults: 05/19/18 18:36 Consult Physician Routine Consulting Provider: Osei Stewart Consult Reason/Comments: patient with CVID - SIRS criteria, admitted last month Do you want consulting provider notified?: Yes Primary care physician: Physician Nonstaff Hospital Course: 67-year-old female with history of adrenal insufficiency and common variable immunodeficiency syndrome and hypothyroidism presented to the hospital with 3 day history of fevers, rigors and fatigue. In addition she was having worsening left sided as well as suprapubic abdominal pain. Patient otherwise denied any coughing or dysuria. She denied any headaches or neck stiffness. No nausea or vomiting, changes in her bowel habits or urinary habits. She was admitted to the hospital a month ago for management of similar symptoms, at that time she was treated with Rocephin, ID specialty was assisting in her management patient was discharged eventually on short course of Ceftin and and no clear source of infection was identified. Patient blood cultures at that time showed no growth after 48 hours. This time she is presented with similar symptoms, again her blood cultures were negative. She had unremarkable chest x-ray and urinalysis. Patient was started on ceftriaxone 1 g IV daily. She'll also treated with stress dose of hydrocortisone and aggressive IV fluid hydration. Dr. Stewart evaluated her and agreed with the management. When patient first came in her temperature was 100.2 but throughout the hospitalization patient did not spike any fevers. Today patient be discharged home in a stable condition. She was instructed to follow-up with her primary care physician as well as Dr. Stewart in the office. Discharge diagnoses: Common variable immunodeficiency Fever of unknown origin Patient Condition at Discharge: Good Plan - Discharge Summary New Discharge Prescriptions: New Cefpodoxime Proxetil [Vantin] 200 mg PO Q12HR #14 tab Acetaminophen Tab [Tylenol] 650 mg PO Q6HR PRN tab PRN Reason: Mild Pain Or Fever > 100.5 Ibuprofen [Motrin] 400 mg PO Q6HR PRN tab PRN Reason: Mild Pain Or Fever > 100.5 Continue oxyCODONE HCL 30 mg PO Q4H PRN PRN Reason: Pain clonazePAM [KlonoPIN] 1 mg PO DAILY Levothyroxine Sodium [Synthroid] 75 mcg PO MOTUWETHFRSA Topiramate [Topamax] 50 mg PO HS Nortriptyline HCl [Pamelor] 25 mg PO DAILY Ergocalciferol [Vitamin D2 (DRISDOL)] 50,000 unit PO Q7D buPROPion HCL [Wellbutrin SR] 150 mg PO BID Hydrocortisone [Cortef] 20 mg PO HS Hydrocortisone [Cortef] 30 mg PO QAM Ondansetron [Zofran] 4 mg PO Q12HR PRN PRN Reason: Nausea Hizentra 15 g SQ Q7D Gabapentin 600 mg PO TID Vilazodone HCl [Viibryd] 40 mg PO QAM Liothyronine Sodium [Cytomel] 5 mcg PO DAILY Discontinued Levothyroxine Sodium [Synthroid] 37.5 mcg PO OTOOLE Discharge Medication List Ergocalciferol [Vitamin D2 (DRISDOL)] 50,000 unit PO Q7D 04/18/18 [History] Hydrocortisone [Cortef] 20 mg PO HS 04/18/18 [History] Hydrocortisone [Cortef] 30 mg PO QAM 04/18/18 [History] Levothyroxine Sodium [Synthroid] 75 mcg PO MOTUWETHFRSA 04/18/18 [History] Nortriptyline HCl [Pamelor] 25 mg PO DAILY 04/18/18 [History] Topiramate [Topamax] 50 mg PO HS 04/18/18 [History] buPROPion HCL [Wellbutrin SR] 150 mg PO BID 04/18/18 [History] clonazePAM [KlonoPIN] 1 mg PO DAILY 04/18/18 [History] oxyCODONE HCL 30 mg PO Q4H PRN 04/18/18 [History] Gabapentin 600 mg PO TID 05/19/18 [History] Hizentra 15 g SQ Q7D 05/19/18 [History] Liothyronine Sodium [Cytomel] 5 mcg PO DAILY 05/19/18 [History] Ondansetron [Zofran] 4 mg PO Q12HR PRN 05/19/18 [History] Vilazodone HCl [Viibryd] 40 mg PO QAM 05/19/18 [History] Acetaminophen Tab [Tylenol] 650 mg PO Q6HR PRN tab 05/21/18 [Rx] Cefpodoxime Proxetil [Vantin] 200 mg PO Q12HR #14 tab 05/21/18 [Rx] Ibuprofen [Motrin] 400 mg PO Q6HR PRN tab 05/21/18 [Rx] Follow up Appointment(s)/Referral(s): Nonstaff,Physician [Primary Care Provider] - 1-2 days Patient Instructions/Handouts: Fever in Adults (GEN)
--- NOTE | 2018-05-24 08:26 | CDI ---
Last Revision, October 2017 Documentation Clarification Form Date: 05/24/18 From: Tabby Juárez Phone: If you have a question regarding this query, please contact Hayde Walls at [phone] between 8am and 5pm. Admit Date: 05/19/2018 6:36:00 PM Patient Name: Prisca Stewart Visit Number: [id number] Discharge Date: 05/21/18 ATTENTION: The Clinical Documentation Specialists (CDI) and [facility] Coding Staff appreciate your assistance in clarifying documentation. Please respond to the clarification below the line at the bottom and electronically sign. The CDI & [facility] Coding staff will review the response and follow-up if needed. Please note: Queries are made part of the Legal Health Record. If you have any questions, please contact the author of this message via ITS. Dr. Osei Stewart Lupus is documentedin Darlyn Thakur's consult note and in your consult note. Patient history/risk factors: Patient was admitted for SIRS and fever of unknown origin. Patient has a history of common variable immunodeficiency, adrenocortical insufficiency, Sjogren's and interstitial cystitis. In your professional opinion, can you please clarify the type of lupus? Discoid Systemic Vulgaris Other, please specify Unable to determine Unable todetermine type of lupus MTDD
== END 2018-05-21 11:33 | disposition home or self-care (01) | DRG 864 ==
LOC: EC 16:01 → OBSVTOIN 18:36 → 4MS4W 18:36
PROVIDERS: ADMIT Internal Medicine; ATTEND Internal Medicine
DX: R50.9 Fever, unspecified (principal); R65.10 Systemic inflammatory response syndrome (SIRS) of non-infectious origin without acute organ dysfunction; D83.9 Common variable immunodeficiency, unspecified; E27.40 Unspecified adrenocortical insufficiency; E89.0 Postprocedural hypothyroidism; F32.9 Major depressive disorder, single episode, unspecified; G89.29 Other chronic pain; M06.9 Rheumatoid arthritis, unspecified; M35.00 Sjogren syndrome, unspecified; N30.10 Interstitial cystitis (chronic) without hematuria; N32.89 Other specified disorders of bladder; F41.9 Anxiety disorder, unspecified; R10.2 Pelvic and perineal pain; R10.12 Left upper quadrant pain; R05 Cough; Z79.890 Hormone replacement therapy; Z79.899 Other long term (current) drug therapy; Z88.1 Allergy status to other antibiotic agents; Z88.8 Allergy status to other drugs, medicaments and biological substances; Z86.14 Personal history of Methicillin resistant Staphylococcus aureus infection; Z90.49 Acquired absence of other specified parts of digestive tract; Z87.440 Personal history of urinary (tract) infections; Z87.01 Personal history of pneumonia (recurrent); Z83.49 Family history of other endocrine, nutritional and metabolic diseases
CPT/HCPCS: 36415; 71046; 80053; 81003; 83605; 84439; 84443; 84484; 85025; 85610; 85730; 87040; 87086; 93005; 96374; 99284

== ENCOUNTER 2019-04-06 08:58 | Inpatient (IN) | payer MEDICARE, BC ==
[2019-04-06] MEDS ORDERED: SODIUM CHLORIDE 0.9% 500 ML 500 ML IV STA (09:10)
[2019-04-06] MEDS ORDERED: SODIUM CHLORIDE 0.9% 1,000 ML IV STA ×3 (09:10→09:57)
[2019-04-06] MEDS ORDERED: IPRATROPIUM-ALBUTEROL 3 ML NEB INHALATION STA (09:56)
[2019-04-06] MEDS ORDERED: MORPHINE SULFATE 4 MG/ML SYRINGE IVP STA (09:56)
--- NOTE | 2019-04-06 10:15 | ED ---
Nausea/Vomiting/Diarrhea HPI - General Chief complaint: Nausea/Vomiting/Diarrhea Stated complaint: nausea/cough Time Seen by Provider: 04/06/19 09:08 Source: patient, RN notes reviewed, old records reviewed Mode of arrival: wheelchair Limitations: no limitations - History of Present Illness Initial comments: This is a 59 female the ER for evaluation. Patient presented today for evaluation of weakness nausea vomiting dehydration. Patient has Sjogren's disease possible underlying immunodeficiency disease. Multiple sick contacts including hospitalization as well as with bronchitis. Patient denies fever but states she never gets fevers she has nausea with vomiting no diarrhea. No recent antibiotic use. MD complaint: nausea, vomiting -: days(s) Description of Vomiting: food contents, watery, bilious Associated Abdominal Pain: Yes Location: diffuse Radiation: none Severity: mild Severity scale (1-10): 3 Quality: aching Consistency: constant Improves with: none Worsens with: none Context: sick contacts Associated Symptoms: loss of appetite, nausea/vomiting, weakness - Related Data Home Medications Medication Instructions Recorded Confirmed Ergocalciferol [Vitamin D2 50,000 unit PO OTOOLE 04/18/18 04/06/19 (DRISDOL)] Hydrocortisone [Cortef] 20 mg PO HS 04/18/18 04/06/19 Hydrocortisone [Cortef] 30 mg PO QAM 04/18/18 04/06/19 Levothyroxine Sodium [Synthroid] 75 mcg PO MOTUWETHFRSA 04/18/18 04/06/19 Nortriptyline HCl [Pamelor] 25 mg PO HS 04/18/18 04/06/19 Topiramate [Topamax] 50 mg PO HS 04/18/18 04/06/19 buPROPion HCL [Wellbutrin SR] 300 mg PO DAILY 04/18/18 04/06/19 clonazePAM [KlonoPIN] 0.5 - 1 mg PO DAILY 04/18/18 04/06/19 Liothyronine Sodium [Cytomel] 5 mcg PO BID 05/19/18 04/06/19 Ondansetron [Zofran] 4 mg PO Q12HR PRN 05/19/18 04/06/19 Gabapentin [Neurontin] 400 mg PO BID 04/06/19 04/06/19 Levothyroxine Sodium [Synthroid] 37.5 mcg PO OTOOLE 04/06/19 04/06/19 Promethazine [Phenergan] 25 mg PO Q6H PRN 04/06/19 04/06/19 Solu-Cortef 100 mg SQ DAILY PRN 04/06/19 04/06/19 buPROPion HCL [Wellbutrin SR] 150 mg PO HS 04/06/19 04/06/19 Allergies Allergy/AdvReac Type Severity Reaction Status Date / Time ciprofloxacin [From Cipro] Allergy Rash/Hives Verified 04/06/19 09:29 levofloxacin [From Levaquin] Allergy Rash/Hives Verified 04/06/19 09:29 quinine Allergy ruptures Verified 04/06/19 09:29 tendons Review of Systems ROS Statement: Those systems with pertinent positive or pertinent negative responses have been documented in the HPI. ROS Other: All systems not noted in ROS Statement are negative. Past Medical History Past Medical History: Thyroid Disorder Additional Past Medical History / Comment(s): Gastro, sepsis, adrenal in sufficiency, hypothyroidism, depression and anxiety, common variable immunodeficiency disease (primary immune disease) History of Any Multi-Drug Resistant Organisms: MRSA Date of last positivie culture/infection: 2007 MDRO Source:: back Past Surgical History: Cholecystectomy, Tonsillectomy Additional Past Surgical History / Comment(s): thyroidectomy, partial intestines removed, abd surgeries Past Anesthesia/Blood Transfusion Reactions: No Reported Reaction Past Psychological History: Anxiety, Depression Smoking Status: Never smoker Past Alcohol Use History: None Reported Past Drug Use History: None Reported - Past Family History Mother Family Medical History: Thyroid Disorder General Exam Limitations: no limitations General appearance: alert, in no apparent distress Head exam: Present: atraumatic, normocephalic, normal inspection Eye exam: Present: normal appearance, PERRL, EOMI. Absent: scleral icterus, conjunctival injection, periorbital swelling ENT exam: Present: normal exam, mucous membranes dry Neck exam: Present: normal inspection. Absent: tenderness, meningismus, lymphadenopathy Respiratory exam: Present: normal lung sounds bilaterally. Absent: respiratory distress, wheezes, rales, rhonchi, stridor Cardiovascular Exam: Present: regular rate, normal rhythm, normal heart sounds. Absent: systolic murmur, diastolic murmur, rubs, gallop, clicks GI/Abdominal exam: Present: soft, normal bowel sounds. Absent: distended, tende rness, guarding, rebound, rigid Extremities exam: Present: normal inspection, full ROM, normal capillary refill. Absent: tenderness, pedal edema, joint swelling, calf tenderness Back exam: Present: normal inspection Neurological exam: Present: alert, oriented X3, CN II-XII intact Psychiatric exam: Present: normal affect, normal mood Skin exam: Present: warm, dry, intact, normal color. Absent: rash Course Vital Signs 04/06/19 09:04 Temperature 98.9 F Pulse Rate 89 Respiratory 18 Rate Blood Pressure 116/77 O2 Sat by Pulse 89 L Oximetry - Reevaluation(s) Reevaluation #1: 04/06/19 10:43 Clinical record reviewed Reevaluation #2: 04/06/19 10:43 Patient's feeling better with symptomatic treatment, fluids pain control and nausea meds Medical Decision Making - Medical Decision Making 68 female the ER for evaluation. Patient was essay for evaluation regarding nausea vomiting weakness severe dehydration, patient is significant underlying immunodeficiency, will admit for rule out sepsis - Lab Data Result diagrams: 04/06/19 08:40 Lab Results 04/06/19 04/06/19 Range/Units 08:40 08:40 PT 10.6 (9.0-12.0) sec INR 1.0 (<1.2) APTT 29.7 (22.0-30.0) sec Sodium 137 (137-145) mmol/L Potassium 4.3 (3.5-5.1) mmol/L Chloride 102 (98-107) mmol/L Carbon Dioxide 26 (22-30) mmol/L Anion Gap 9 mmol/L BUN 22 H (7-17) mg/dL Creatinine 0.96 (0.52-1.04) mg/dL Est GFR (CKD-EPI)AfAm 70 (>60 ml/min/1.73 sqM) Est GFR (CKD-EPI)NonAf 61 (>60 ml/min/1.73 sqM) Glucose 82 (74-99) mg/dL Calcium 8.8 (8.4-10.2) mg/dL Phosphorus 3.0 (2.5-4.5) mg/dL Magnesium 2.0 (1.6-2.3) mg/dL Total Bilirubin 0.7 (0.2-1.3) mg/dL AST 33 (14-36) U/L ALT 32 (9-52) U/L Alkaline Phosphatase 75 (38-126) U/L Total Protein 6.1 L (6.3-8.2) g/dL Albumin 3.4 L (3.5-5.0) g/dL - EKG Data -: EKG Interpreted by Me (EKG shows normal sinus rhythm rate of 86, NH 140, QRS 90, QTc 469) - Radiology Data Radiology results: report reviewed (X-ray abdominal series and chest is negative for acute disease), image reviewed Disposition Clinical Impression: Dehydration, Weakness, Nausea & vomiting Disposition: ADMITTED IP TO THIS [facility] Condition: Fair Is patient prescribed a controlled substance at d/c from ED?: No Referrals: Nonstaff,Physician [Primary Care Provider] - 1-2 days
[2019-04-06 10:27] LABS: Albumin 3.4 g/dL (3.5-5.0); Calcium 8.8 mg/dL (8.4-10.2); Potassium 4.3 mmol/L (3.5-5.1); Total Bilirubin 0.7 mg/dL (0.2-1.3); Total Protein 6.1 g/dL (6.3-8.2)
[2019-04-06] MEDS ORDERED: ONDANSETRON 4 MG/2 ML VIAL IVP STA (10:28)
[2019-04-06 10:39] LABS: Partial Thromboplastin Time 29.7 sec (22.0-30.0); Prothrombin Time 10.6 sec (9.0-12.0)
[2019-04-06] MEDS ORDERED: MORPHINE SULFATE 4 MG/ML SYRINGE IVP PRN (10:42)
[2019-04-06] MEDS ORDERED: SODIUM CHLORIDE 0.9% 500 ML 500 ML IV SCH (10:45)
[2019-04-06 10:57] LABS: Basophils # (A) 0.1 k/uL (0-0.2); Basophils % (A) 1 %; Eosinophils # (A) 0.1 k/uL (0-0.7); Eosinophils % (A) 1 %; HCT 38.4 % (34.0-46.0); HGB 12.1 gm/dL (11.4-16.0); Hypochromasia Slight; Lymphocytes # (A) 0.7 k/uL (1.0-4.8); Lymphocytes % (A) 7 %; MCH 30.5 pg (25.0-35.0); MCHC 31.6 g/dL (31.0-37.0); MCV 96.3 fL (80.0-100.0); Mean Platelet Volume 7.4; Monocytes # (A) 0.6 k/uL (0-1.0); Monocytes % (A) 6 %; Neutrophils % (A) 83 %; Platelet Count 171 k/uL (150-450); RBC 3.98 m/uL (3.80-5.40); WBC 9.6 k/uL (3.8-10.6)
[2019-04-06] MEDS: SODIUM CHLORIDE 0.9% 1,000 ML IV SCH ×3 (11:09→23:41)
[2019-04-06] MEDS ORDERED: AZITHROMYCIN 500 MG in SODIUM CHLORIDE 0.9% 250 ML IVPB STA (11:38)
[2019-04-06] MEDS: IPRATROPIUM-ALBUTEROL 3 ML NEB INHALATION SCH ×3 (12:21→20:50)
[2019-04-06] MEDS: ONDANSETRON 4 MG/2 ML VIAL IVP PRN ×2 (12:37→20:24)
[2019-04-06 14:24] VITALS: BMI 29.6
--- NOTE | 2019-04-06 14:26 | XR ---
EXAMINATION TYPE: XR abdomen acute w cxr , 4 VIEWS DATE OF EXAM ORDERED: 04/06/2019 HISTORY: Pain. COMPARISON: Previous chest x-ray dated 05/19/2018. FINDINGS: There is developed innumerable prominence of the right hilum. There is an infiltrate in th e right midlung. There is vascular congestion without starr edema. Pleural spaces appear clear. Within the abdomen, the gallbladder is been removed. The abdominal gas pattern is within normal limit s. There is no evidence of obstruction or free air. No unusual calcifications are seen. IMPRESSION: 1. PROMINENCE OF THE RIGHT HILUM WITH ADJACENT AIRSPACE DISEASE MAY REFLECT ADENOPATHY AND ADJACENT P NEUMONIA. 2. VASCULAR CONGESTION, GREATER ON THE RIGHT THAN THE LEFT. 3. NO ACUTE INTRA-ABDOMINAL ABNORMALITY.
[2019-04-06] MEDS ORDERED: BENZOCAINE/MENTHOL LOZENG 1 EACH LOZENGE MUCOUS MEM PRN (16:03)
[2019-04-06] MEDS ORDERED: ACETAMINOPHEN TAB 325 MG TAB PO PRN (16:03)
[2019-04-06] MEDS ORDERED: MELATONIN 3 MG TABLET PO PRN (16:03)
[2019-04-06] MEDS ORDERED: NALOXONE 0.4 MG/ML 1 ML VIAL IV PRN (16:03)
[2019-04-06] MEDS ORDERED: PROMETHAZINE 25 MG TAB PO PRN (16:05)
[2019-04-06] MEDS ORDERED: MORPHINE SULFATE 2 MG/ML SYRINGE IVP PRN (16:05)
[2019-04-06] MEDS ORDERED: ERGOCALCIFEROL 50,000 UNIT CAP PO SCH (16:15)
[2019-04-06] MEDS ORDERED: LEVOTHYROXINE 75 MCG TAB PO SCH (16:15)
[2019-04-06] MEDS: HYDROCORTISONE SUCCINATE 100 MG/2 ML VIAL IV SCH ×2 (16:27→23:41)
--- NOTE | 2019-04-06 16:27 | P.HPIM ---
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 On arrival to the ER her vital signs were within normal limits. Laboratory analysis shows a low albumin and low total protein was otherwise within normal limits. Chest x-ray showed prominence of the right hilum with adjacent airspace disease and vascular congestion right greater than left. Acute abdominal series showed no acute intra-abdominal process. She was started on IV fluids, Zithromax, and Rocephin. She is admitted for further monitoring. Patient reports that she has common variable immunodeficiency. She reports that she takes IVIG once weekly. She typically lives in [place] and then comes to [facility] for the summer. She states she has followed with Dr. Stewart in the past. She reports that she brought enough IVIG with her for the trip. She states that she traveled with her [id number] and brother. She was exposed to bronchitis. She reports that she then developed a deep wet cough. It is not productive. She states she has been sweaty at night intermittently for the last couple of nights but has not noticed a fever. She reports feeling very weak. She also reports some chest discomfort with coughing. She denies any wheezing or shortness of breath. She then started developing nausea and vomiting. She has been unable to keep food down. She states that she has been unable to keep her medicine down for 3 days and she has a known history of adrenal insufficiency. She has chronic abdominal pain which is typical for her illness. She reports no diarrhea. She reports decreased appetite. She has not had any recent changes in her medications. She has been recently diagnosed with postural orthostatic tachycardia syndrome. Review of Systems Pertinent positives and negatives as discussed in HPI, a complete review of systems was performed and all other systems are negative. Past Medical History Past Medical History: Thyroid Disorder Additional Past Medical History / Comment(s): Sepsis, adrenal insufficiency, hypothyroidism, depression and anxiety, common variable immunodeficiency disease (primary immune disease), POTS, Sjogrean, Rheumatoid arthritis, Lupus, Interstitial cystitis, Cyclic vomiting. History of Any Multi-Drug Resistant Organisms: None Reported Date of last positivie culture/infection: 2007 MDRO Source:: back Past Surgical History: Cholecystectomy, Tonsillectomy Additional Past Surgical History / Comment(s): thyroidectomy, abd surgeries, ovaries out, several abdominal surgeries for fibroids and cyst removal, Past Anesthesia/Blood Transfusion Reactions: No Reported Reaction Past Psychological History: Anxiety, Depression Additional Psychological History / Comment(s): Single no longer able to live on her own consequently lives with her sister and [id number] in [place]. Because they travel to [place] for the summer she does come here. It is complicated because of her IVIG subcutaneous injection. She is a lifelong nonsmoker and denies any significant alcohol use no recreational drug use. No animals in the home at this time. She travels between [place] and [place]. 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 Smoking Status: Never smoker Past Alcohol Use History: None Reported Past Drug Use History: None Reported - Past Family History Mother Family Medical History: Thyroid Disorder Additional Family Medical History / Comment(s): Primary immune disease Father Family Medical History: Coronary Artery Disease (CAD) Additional Family Medical History / Comment(s): heart disease, Medications and Allergies Home Medications Medication Instructions Recorded Confirmed Type Ergocalciferol [Vitamin D2 50,000 unit PO OTOOLE 04/18/18 04/06/19 History (LEANN)] Hydrocortisone [Cortef] 20 mg PO HS 04/18/18 04/06/19 History Hydrocortisone [Cortef] 30 mg PO QAM 04/18/18 04/06/19 History Levothyroxine Sodium [Synthroid] 75 mcg PO MOTUWETHFRSA 04/18/18 04/06/19 History Nortriptyline HCl [Pamelor] 25 mg PO HS 04/18/18 04/06/19 History Topiramate [Topamax] 50 mg PO HS 04/18/18 04/06/19 History buPROPion HCL [Wellbutrin SR] 300 mg PO DAILY 04/18/18 04/06/19 History clonazePAM [KlonoPIN] 0.5 - 1 mg PO DAILY 04/18/18 04/06/19 History Liothyronine Sodium [Cytomel] 5 mcg PO BID 05/19/18 04/06/19 History Ondansetron [Zofran] 4 mg PO Q12HR PRN 05/19/18 04/06/19 History Gabapentin [Neurontin] 400 mg PO BID 04/06/19 04/06/19 History Levothyroxine Sodium [Synthroid] 37.5 mcg PO OTOOLE 04/06/19 04/06/19 History Promethazine [Phenergan] 25 mg PO Q6H PRN 04/06/19 04/06/19 History Solu-Cortef 100 mg SQ DAILY PRN 04/06/19 04/06/19 History buPROPion HCL [Wellbutrin SR] 150 mg PO HS 04/06/19 04/06/19 History Allergies Allergy/AdvReac Type Severity Reaction Status Date / Time ciprofloxacin [From Cipro] Allergy Rash/Hives Verified 04/06/19 09:29 levofloxacin [From Levaquin] Allergy Rash/Hives Verified 04/06/19 09:29 quinine Allergy ruptures Verified 04/06/19 09:29 tendons Physical Exam Osteopathic Statement: *. No significant issues noted on an osteopathic structural exam other than those noted in the History and Physical/Consult. Vitals: Vital Signs Temp Pulse Resp BP Pulse Ox 04/06/19 14:25 18 04/06/19 11:10 98.0 F 89 18 136/70 98 04/06/19 10:58 92 04/06/19 10:43 100 04/06/19 09:04 98.9 F 89 18 116/77 89 L Intake and Output 04/06/19 04/06/19 04/06/19 06:59 14:59 22:59 Other: Weight 88.451 kg General: Ill appearing, no distress, appears at stated age, normal weight Derm: + Dry skin, masked facies, no unusual rashes/lesions no unusual ecchymoses, warm, dry Head: atraumatic, normocephalic, symmetric Eyes: EOMI, no lid lag, anicteric sclera, pupils equal round reactive to light ENT: Nose and ears atraumatic, no thrush, + pharyngeal erythema Neck: No thyromegaly, + cervical lymphadenopathy, trachea midline, supple Mouth: no lip lesion, mucus membranes dry Cardiovascular: S1S2 reg, no murmur, positive posterior tibial pulse bilateral, trace edema, capillary refill less than 2 seconds Lungs: faint rhonchi bilateral , no accessory muscle use Abdominal: soft, +tender to palpation diffusely, no guarding, no appreciable organomegaly, normal bowel sounds Ext: no gross muscle atrophy, muscle strength 5 out of 5 in all 4 extremities grossly, no contractures, Neuro: + Tremors, CN II-XI grossly intact, light touch intact all 4 extremities, finger to nose within normal limits, Psych: Alert, oriented, appropriate affect Results CBC & Chem 7: 04/06/19 08:40 04/06/19 08:40 Labs: Abnormal Lab Results - Last 24 Hours (Table) 04/06/19 04/06/19 Range/Units 08:40 08:40 RDW 16.0 H (11.5-15.5) % Neutrophils # 8.0 H (1.3-7.7) k/uL Lymphocytes # 0.7 L (1.0-4.8) k/uL BUN 22 H (7-17) mg/dL Total Protein 6.1 L (6.3-8.2) g/dL Albumin 3.4 L (3.5-5.0) g/dL Chest x-ray: report reviewed, image reviewed (Appears to have right-sided hilar infiltrate) Abdominal x-ray: report reviewed Thrombosis Risk Factor Assmnt - DVT/VTE Prophylaxis DVT/VTE Prophylaxis: Pharmacologic Prophylaxis ordered - Choose All That Apply Any of the Below Risk Factors Present?: Yes Each Factor Represents 1 point: Obesity (BMI >25) Other Risk Factors: Yes Each Risk Factor Represents 2 Points: Age 61-74 years Other congenital or acquired thrombophilia - If yes, enter type in comment: No Thrombosis Risk Factor Assessment Total Risk Factor Score: 3 Thrombosis Risk Factor Assessment Level: Moderate Risk Assessment and Plan Assessment: Right-sided pneumonia, present on admission with history of common variable immunodeficiency -Continue with Zithromax and Rocephin -IV fluids -Start stress dose steroids and she has missed 3 days of Cortef for adrenal insufficiency. Currently no signs of adrenal crisis. -Sputum culture -Follow chest x-ray until clear -Consult ID -Continue with weekly IVIG Adrenal insufficiency -No overt signs of adrenal crisis -Start Cortef IV 50mg 3 times a day until patient is able to tolerate orals Intractable nausea and vomiting -Likely related to above as well as her cyclic vomiting syndrome -Zofran and Phenergan -IV fluids Hypothyroidism -Continue home Synthroid Chronic: Sjogren's Depression Rheumatoid arthritis Lupus Interstitial cystitis POTS The patient is placed in observation with an anticipated less than 2 per night stay for evaluation of Pneumonia intractable nausea and vomiting. Surrogate decision-maker: Brother CODE STATUS: Full DVT prophylaxis: Lovenox Discussed with: Patient, nursing Anticipated discharge date: 1-[address]: home A total of 75 minutes was spent on the care of this complex patient more than 50% of the time was spent in counseling and care coordination.
[2019-04-06 18:18] LABS: Appearance,Urine Clear (Clear); Bilirubin,Urine Negative (Negative); Blood,Urine Negative (Negative); Color,Urine Yellow; Glucose,Urine (UA) Negative (Negative); Ketones,Urine 2+ (Negative); Leukocyte Esterase,Urine Negative (Negative); Mucus,Urine Rare /hpf; Nitrite,Urine Negative (Negative); Protein,Urine 1+ (Negative); Specific Gravity,Urine 1.023 (1.001-1.035); Squamous Epithelial Cell,Urine <1 /hpf (0-4); Urobilinogen,Urine <2.0 mg/dL (<2.0); WBC,Urine 2 /hpf (0-5)
[2019-04-06] MEDS: LIOTHYRONINE SODIUM 5 MCG TAB PO SCH (20:28)
[2019-04-06] MEDS: buPROPion SR 150 MG TABLET.ER PO SCH (20:28)
[2019-04-06] MEDS: GABAPENTIN 400 MG CAP PO SCH (20:28)
[2019-04-06] MEDS: NORTRIPTYLINE 25 MG CAP PO SCH (20:29)
[2019-04-06] MEDS: TOPIRAMATE 25 MG TAB PO SCH (20:29)
[2019-04-07] MEDS: IPRATROPIUM-ALBUTEROL 3 ML NEB INHALATION SCH ×6 (00:50→20:16)
[2019-04-07] MEDS: LEVOTHYROXINE 75 MCG TAB PO SCH (05:31)
[2019-04-07] MEDS: clonazePAM 0.5 MG TAB PO SCH (08:48)
[2019-04-07] MEDS: buPROPion SR 150 MG TABLET.ER PO SCH ×2 (08:48→20:17)
[2019-04-07] MEDS: LIOTHYRONINE SODIUM 5 MCG TAB PO SCH ×2 (08:48→20:17)
[2019-04-07] MEDS: PANTOPRAZOLE 40 MG/10 ML VIAL IVP SCH (08:48)
[2019-04-07] MEDS: HYDROCORTISONE SUCCINATE 100 MG/2 ML VIAL IV SCH ×3 (08:48→23:42)
[2019-04-07] MEDS: GABAPENTIN 400 MG CAP PO SCH ×2 (08:48→20:17)
[2019-04-07] MEDS: ENOXAPARIN 40 MG/0.4 ML SYRINGE SQ SCH (08:49)
[2019-04-07] MEDS: AZITHROMYCIN 500 MG in SODIUM CHLORIDE 0.9% 250 ML IVPB SCH (08:49)
[2019-04-07] MEDS: SODIUM CHLORIDE 0.9% 1,000 ML IV SCH ×3 (08:56→20:05)
[2019-04-07 10:17] LABS: Basophils % (A) 0 %; Eosinophils % (A) 1 %; HCT 37.5 % (34.0-46.0); HGB 11.4 gm/dL (11.4-16.0); Hypochromasia Slight; Lymphocytes # (A) 0.7 k/uL (1.0-4.8); Lymphocytes % (A) 11 %; MCH 30.1 pg (25.0-35.0); MCHC 30.4 g/dL (31.0-37.0); MCV 98.9 fL (80.0-100.0); Mean Platelet Volume 6.5; Monocytes # (A) 0.3 k/uL (0-1.0); Monocytes % (A) 6 %; Neutrophils # (A) 4.8 k/uL (1.3-7.7); Neutrophils % (A) 80 %; Platelet Count 156 k/uL (150-450); RBC 3.79 m/uL (3.80-5.40); RDW 14.9 % (11.5-15.5)
--- NOTE | 2019-04-07 16:44 | P.PN ---
Subjective Progress Note Date: 04/07/19 Patient feeling slightly better today continues to be on IV fluids, denies any significant shortness of breath, but complains of weakness. Patient has been afebrile overnight, continues without any leukocytosis. The patient has a history of combined variable immunodeficiency and takes IVIG once weekly had recent exposure to family member with acute bronchitis Objective - Vital Signs Vital signs: Vital Signs Temp 98.0 F 04/07/19 13:55 Pulse 84 04/07/19 13:55 Resp 16 04/07/19 16:19 BP 135/84 04/07/19 13:55 Pulse Ox 92 L 04/07/19 13:55 Intake & Output 04/06/19 04/07/19 04/07/19 18:59 06:59 18:59 Intake Total 300 Balance 300 Weight 88.451 kg 88.451 kg Intake: Intake, IV Titration 300 Amount Sodium Chloride 0.9% 1, 300 000 ml @ 150 mls/hr IV . Q6H40M [facility] Rx#:[id number] Other: # Voids 1 3 - Exam Constitutional: No acute distress, conversant, pleasant Eyes: Anicteric sclerae, moist conjunctiva, no lid-lag, PERRLA ENMT: NC/AT,Oropharynx clear, no erythema, exudates Neck:Supple, FROM, no masses, or JVD, No carotid bruits; No thyromegaly Lungs: Diminished in the bases right-sided rhonchi, unlabored, Cardiovascular: Heart regular in rate and rhythm, No murmurs, gallops, or rubs no peripheral edema Abdominal: Soft Nontender, nom distended, no guarding, no rebound or rigidity, Normoactive bowel sounds No hepatomegaly, No splenomegaly, No palpable mass No abdominal wall hernia noted Skin: Normal temperature, tone, texture, turgor, No induration No subcutaneous nodules, No rash, lesions, No ulcers Extremities:No digital cyanosis No clubbing, Pedal pulses intact and symmetrical Radial pulses intact and symmetrical Normal gait and station, No calf tenderness Psychiatric: Alert and oriented to person, place and time, Appropriate affect Intact judgement Neuro: Muscles Strength 5/5 in all 4 extremities, Sensation to light touch grossly present throughout, Cranial nerves II-XII grossly intact. No focal sensory deficits - Labs CBC & Chem 7: 04/07/19 09:45 04/06/19 08:40 Labs: Abnormal Lab Results - Last 24 Hours (Table) 04/06/19 04/07/19 Range/Units 17:30 09:45 RBC 3.79 L (3.80-5.40) m/uL MCHC 30.4 L (31.0-37.0) g/dL Lymphocytes # 0.7 L (1.0-4.8) k/uL Urine Protein 1+ H (Negative) Urine Ketones 2+ H (Negative) Urine Mucus Rare H (None) /hpf Microbiology - Last 24 Hours (Table) 04/06/19 17:30 Urine Culture - Preliminary Urine,Voided Assessment and Plan (1) Pneumonia Narrative/Plan: * -Continue with Zithromax and Rocephin -IV fluids -Start stress dose steroids and she has missed 3 days of Cortef for adrenal insufficiency. Currently no signs of adrenal crisis. -Sputum culture -Follow chest x-ray until clear -Consult ID -Continue with weekly IVIG Current Visit: Yes Status: Acute Code(s): J18.9 - PNEUMONIA, UNSPECIFIED ORGANISM SNOMED Code(s): 466311357 (2) Nausea & vomiting Narrative/Plan: Likely related to above as well as her cyclic vomiting syndrome -Zofran and Phenergan -IV fluids * Nausea improving continue to advance to regular diet Current Visit: Yes Status: Acute Code(s): R11.2 - NAUSEA WITH VOMITING, UNSPECIFIED SNOMED Code(s): 87154478 (3) Combined variable immunodeficiency Narrative/Plan: * ID consult pending * Patient takes IVIG as an outpatient on a weekly basis Current Visit: No Status: Acute Code(s): D83.9 - COMMON VARIABLE IMMUNODEFICIENCY, UNSPECIFIED SNOMED Code(s): 228621093 Plan: * Disposition patient continues to be afebrile no leukocytosis continue current antibiotics * Consult ID awaiting further recommendations
[2019-04-07] MEDS: NORTRIPTYLINE 25 MG CAP PO SCH (20:17)
[2019-04-07] MEDS: TOPIRAMATE 25 MG TAB PO SCH (20:18)
[2019-04-07] MEDS: HYDROcodone/APAP 5-325MG 1 EACH TAB PO PRN (22:33)
--- NOTE | 2019-04-07 23:52 | P.CONS ---
History of Present Illness - Reason for Consult Consult date: 04/07/19 - Chief Complaint Fever and cough - History of Present Illness 68-year-old female is known to the service from prior hospitalizations presents to the emergency center feeling acutely ill and feeling very poorly with respiratory illness. The patient has a known history of common variable immunodeficiency is cared for by her cost engineer in [place]. She has come to [place] for the summer into escape the [place] heat. She relates that she does bring her weekly immunoglobulin infusions with her to continue while she is here [place]. She relates that however sister's grandchildren was ill and the sister did develop an upper respiratory infection. Apparently did travel to [place] together. Upon arrival the patient developed respiratory symptoms with increasing cough and sputum production. She developed fevers and chills with some cold sweats and generalized malaise. Respiratory status worsened and because of her immunocompromised was brought in the hospital. Imaging studies revealed evidence of new onset pneumonia and constantly has been admitted and consult was requested. She was feeling somewhat better than admission. She does relate that at home with the onset of fever she started to feel more poorly developed some nausea and was unable to take most of her medications included her Cortef. Shortly thereafter she started to feel much more weak nausea and emesis ensued and eventually presented hospital with the above symptoms. With hydration and rescue with Solu-Cortef IV push she's feeling considerably better this afternoon. She still has a shortness of breath and cough that is not quite as miserable as she was. Review of Systems 68-year-old woman with many medical illnesses HEENT:Denies headache or acute visual change. Denies sinus or mouth discomforts. Denies neck stiffness or pain. Denies significant oral cavity pa in. Denies difficulty on swallowing. Lungs: As per HPI as well as shortness of breath cough associated production without hemoptysis Cardiovascular: Denies chest pain or syncope. Does have shortness of breath and dyspnea with exertion. Gastrointestinal: Significant nausea and emesis and admission if no improvement looks forward to having some solid food for dinner. She denies hematemesis richar shun or hematochezia. She's had no steady and diarrhea. She has chronic abdominal pain. Musculoskeletal: denies significant myalgias or arthralgias. No new joint swelling. Denies new back pain. Skin: Denies new rash or lesions. No new ulcers or wounds are related.. Neuro: Chronic headaches without acute change to other new acute neurological complaint Psychiatric:Denies anxiety or depression. 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 History of Any Multi-Drug Resistant Organisms: None Reported Year Discovered:: 2007 MDRO Source:: back Past Surgical History: Cholecystectomy, Tonsillectomy Additional Past Surgical History / Comment(s): thyroidectomy, abd surgeries, ovaries out, several abdominal surgeries for fibroids and cyst removal, Past Anesthesia/Blood Transfusion Reactions: No Reported Reaction Past Psychological History: Anxiety, Depression Additional Psychological History / Comment(s): Single no longer able to live on her own consequently lives with her sister and [id number] in [place]. Because they travel to [place] for the summer she does come here. It is complicated because of her IVIG subcutaneous injection. She is a lifelong nonsmoker and denies any significant alcohol use no recreational drug use. No animals in the home at this time. She travels between [place] and [place]. 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 Smoking Status: Never smoker Past Alcohol Use History: None Reported Past Drug Use History: None Reported - Past Family History Mother Family Medical History: Thyroid Disorder Additional Family Medical History / Comment(s): Primary immune disease Father Family Medical History: Coronary Artery Disease (CAD) Additional Family Medical History / Comment(s): heart disease, Medications and Allergies Home Medications and Allergies Comment(s): Current Medications Acetaminophen (Tylenol Tab) 650 mg PO Q6HR PRN PRN Reason: Mild Pain or Fever > 100.5 Hydrocodone Bitart/Acetaminophen ([place] 5-325) 1 each PO Q4HR PRN PRN Reason: Moderate Pain Last Admin: 04/07/19 22:33 Dose: 1 each Documented by: Albuterol/Ipratropium (Duoneb 0.5 Mg-3 Mg/3 Ml Soln) 3 ml INHALATION RT-Q4H CRISTINA Last Admin: 04/07/19 20:16 Dose: Not Given Documented by: Benzocaine/Menthol (Cepacol Lozenge) 1 each MUCOUS MEM Q4HR PRN PRN Reason: Sore Throat Bupropion HCl (Wellbutrin Sr) 300 mg PO DAILY [facility] Last Admin: 04/07/19 08:48 Dose: 300 mg Documented by: Bupropion HCl (Wellbutrin Sr) 150 mg PO HS [facility] Last Admin: 04/07/19 20:17 Dose: 150 mg Documented by: Clonazepam (Klonopin) 0.5 mg PO DAILY [facility] Last Admin: 04/07/19 08:48 Dose: 0.5 mg Documented by: Enoxaparin Sodium (Lovenox) 40 mg SQ DAILY [facility] Last Admin: 04/07/19 08:49 Dose: 40 mg Documented by: Ergocalciferol (Vitamin D2) 50,000 unit PO POTTER [facility] Last Admin: 04/06/19 19:03 Dose: Not Given Documented by: Gabapentin (Neurontin) 400 mg PO BID [facility] Last Admin: 04/07/19 20:17 Dose: 400 mg Documented by: Hydrocortisone Sodium Succinate (Solu-Cortef) 50 mg IV Q8HR [facility] Last Admin: 04/07/19 23:42 Dose: 50 mg Documented by: Ceftriaxone Sodium 1 gm/ (Sodium Chloride) 50 mls @ 100 mls/hr IVPB Q24HR [facility] Last Admin: 04/07/19 10:14 Dose: 100 mls/hr Documented by: Sodium Chloride (Saline 0.9%) 1,000 mls @ 150 mls/hr IV .Q6H40M [facility] Last Admin: 04/07/19 20:05 Dose: Not Given Documented by: Azithromycin 500 mg/ Sodium (Chloride) 250 mls @ 250 mls/hr IVPB DAILY [facility] Last Admin: 04/07/19 08:49 Dose: 250 mls/hr Documented by: Levothyroxine Sodium (Synthroid) 37.5 mcg PO Potter@0630 [facility] Last Admin: 04/06/19 19:03 Dose: Not Given Documented by: Levothyroxine Sodium (Synthroid) 75 mcg PO MoTuWeThFrSa@0630 [facility] Last Admin: 04/07/19 05:31 Dose: Not Given Documented by: Liothyronine Sodium (Cytomel) 5 mcg PO BID [facility] Last Admin: 04/07/19 20:17 Dose: 5 mcg Documented by: Melatonin (Melatonin) 3 mg PO HS PRN PRN Reason: Insomnia Morphine Sulfate (Morphine Sulfate (Inj)) 2 mg IVP Q4HR PRN PRN Reason: Pain Last Admin: 04/06/19 18:06 Dose: 2 mg Documented by: Naloxone HCl (Narcan) 0.2 mg IV Q2M PRN PRN Reason: Opioid Reversal Nortriptyline HCl (Pamelor) 25 mg PO [facility] Last Admin: 04/07/19 20:17 Dose: 25 mg Documented by: Ondansetron HCl (Zofran) 4 mg IVP Q6HR PRN PRN Reason: Nausea And Vomiting Last Admin: 04/06/19 20:24 Dose: 4 mg Documented by: Pantoprazole Sodium (Protonix) 40 mg IVP DAILY [facility] Last Admin: 04/07/19 08:48 Dose: 40 mg Documented by: Promethazine HCl (Phenergan) 25 mg PO Q6H PRN PRN Reason: Nausea Last Admin: 04/06/19 22:05 Dose: 25 mg Documented by: Topiramate (Topamax) 50 mg PO [facility] Last Admin: 04/07/19 20:18 Dose: 50 mg Documented by: Home Medications Medication Instructions Recorded Confirmed Type Ergocalciferol [Vitamin D2 50,000 unit PO POTTER 04/18/18 04/06/19 History (DRISDOL)] Hydrocortisone [Cortef] 20 mg PO 04/18/18 04/06/19 History Hydrocortisone [Cortef] 30 mg PO QAM 04/18/18 04/06/19 History Levothyroxine Sodium [Synthroid] 75 mcg PO MOTUWETHFRSA 04/18/18 04/06/19 History Nortriptyline HCl [Pamelor] 25 mg PO 04/18/18 04/06/19 History Topiramate [Topamax] 50 mg PO HS 04/18/18 04/06/19 History buPROPion HCL [Wellbutrin SR] 300 mg PO DAILY 04/18/18 04/06/19 History clonazePAM [KlonoPIN] 0.5 - 1 mg PO DAILY 04/18/18 04/06/19 History Liothyronine Sodium [Cytomel] 5 mcg PO BID 05/19/18 04/06/19 History Ondansetron [Zofran] 4 mg PO Q12HR PRN 05/19/18 04/06/19 History Gabapentin [Neurontin] 400 mg PO BID 04/06/19 04/06/19 History Levothyroxine Sodium [Synthroid] 37.5 mcg PO POTTER 04/06/19 04/06/19 History Promethazine [Phenergan] 25 mg PO Q6H PRN 04/06/19 04/06/19 History Solu-Cortef 100 mg SQ DAILY PRN 04/06/19 04/06/19 History buPROPion HCL [Wellbutrin SR] 150 mg PO HS 04/06/19 04/06/19 History Allergies Allergy/AdvReac Type Severity Reaction Status Date / Time ciprofloxacin [From Cipro] Allergy Rash/Hives Verified 04/06/19 09:29 levofloxacin [From Levaquin] Allergy Rash/Hives Verified 04/06/19 09:29 quinine Allergy ruptures Verified 04/06/19 09:29 tendons IV dye/ contrast Allergy Rash/Hives Uncoded 04/06/19 16:25 Physical Exam Vitals: Vital Signs Temp Pulse Resp BP Pulse Ox 04/07/19 20:00 98.6 F 90 17 133/82 93 L 04/07/19 16:19 16 04/07/19 13:55 98.0 F 84 16 135/84 92 L 04/07/19 07:16 97.7 F 84 16 113/72 94 L 04/07/19 01:09 98.8 F 93 16 138/80 97 Intake and Output 04/07/19 04/07/19 04/08/19 14:59 22:59 06:59 Other: Voiding Method Toilet # Voids 3 1 Weight 88.451 kg Pleasant 68-year-old woman who apparently is much more comfortable than admission, is not in distress HEENT: Anicteric conjunctiva are pink and moist nasal mucosa grossly intact without significant lesions, there is no thrush. Neck: The neck is supple without significant lymphadenopathy or thyromegaly. Lungs: Good bilateral air entry there is evidence of a few crackles at the right mid posterior zone, no bronchial sounds no dullness or egophony Heart: Regular rate and rhythm with an audible S1-S2, no S3 soft S4, There is no significant murmur click or rub, PMI was nondisplaced. Abdomen: Obese, Positive bowel sounds soft and nontender without palpable masses or organomegaly. There was no guarding or rebound. Extremities: The upper extremities have excellent pulses they are symmetric, no significant petechiae or telangiectasia. No splinter hemorrhages were noted. Motion is evidence of a chronic venous stasis and chronic edema but no open ulcerations are seen Neuro: Awake alert oriented to person place and time. There are no acute new gross focal sensory motor deficits. Results CBC & Chem 7: 04/07/19 09:45 04/06/19 08:40 Labs: Abnormal Lab Results - Last 24 Hours (Table) 04/07/19 Range/Units 09:45 RBC 3.79 L (3.80-5.40) m/uL MCHC 30.4 L (31.0-37.0) g/dL Lymphocytes # 0.7 L (1.0-4.8) k/uL Microbiology - Last 24 Hours (Table) 04/06/19 17:30 Urine Culture - Final Urine,Voided Laboratory Results WBC 6.0 k/uL (3.8-10.6) 04/07/19 09:45 RBC 3.79 m/uL (3.80-5.40) L 04/07/19 09:45 Hgb 11.4 gm/dL (11.4-16.0) 04/07/19 09:45 Hct 37.5 % (34.0-46.0) 04/07/19 09:45 MCV 98.9 fL (80.0-100.0) 04/07/19 09:45 MCH 30.1 pg (25.0-35.0) 04/07/19 09:45 MCHC 30.4 g/dL (31.0-37.0) L 04/07/19 09:45 RDW 14.9 % (11.5-15.5) 04/07/19 09:45 Plt Count 156 k/uL (150-450) 04/07/19 09:45 Neutrophils % 80 % 04/07/19 09:45 Lymphocytes % 11 % 04/07/19 09:45 Monocytes % 6 % 04/07/19 09:45 Eosinophils % 1 % 04/07/19 09:45 Basophils % 0 % 04/07/19 09:45 Neutrophils # 4.8 k/uL (1.3-7.7) 04/07/19 09:45 Lymphocytes # 0.7 k/uL (1.0-4.8) L 04/07/19 09:45 Monocytes # 0.3 k/uL (0-1.0) 04/07/19 09:45 Eosinophils # 0.0 k/uL (0-0.7) 04/07/19 09:45 Basophils # 0.0 k/uL (0-0.2) 04/07/19 09:45 Hypochromasia Slight 04/07/19 09:45 PT 10.6 sec (9.0-12.0) 04/06/19 08:40 INR 1.0 (<1.2) 04/06/19 08:40 APTT 29.7 sec (22.0-30.0) 04/06/19 08:40 Sodium 137 mmol/L (137-145) 04/06/19 08:40 Potassium 4.3 mmol/L (3.5-5.1) 04/06/19 08:40 Chloride 102 mmol/L (98-107) 04/06/19 08:40 Carbon Dioxide 26 mmol/L (22-30) 04/06/19 08:40 Anion Gap 9 mmol/L 04/06/19 08:40 BUN 22 mg/dL (7-17) H 04/06/19 08:40 Creatinine 0.96 mg/dL (0.52-1.04) 04/06/19 08:40 Est GFR (CKD-EPI)AfAm 70 (>60 ml/min/1.73 sqM) 04/06/19 08:40 Est GFR (CKD-EPI)NonAf 61 (>60 ml/min/1.73 sqM) 04/06/19 08:40 Glucose 82 mg/dL (74-99) 04/06/19 08:40 Calcium 8.8 mg/dL (8.4-10.2) 04/06/19 08:40 Phosphorus 3.0 mg/dL (2.5-4.5) 04/06/19 08:40 Magnesium 2.0 mg/dL (1.6-2.3) 04/06/19 08:40 Total Bilirubin 0.7 mg/dL (0.2-1.3) 04/06/19 08:40 AST 33 U/L (14-36) 04/06/19 08:40 ALT 32 U/L (9-52) 04/06/19 08:40 Alkaline Phosphatase 75 U/L (38-126) 04/06/19 08:40 Troponin I <0.012 ng/mL (0.000-0.034) 04/06/19 08:40 NT-Pro-B Natriuret Pep 344 pg/mL 04/06/19 08:40 Total Protein 6.1 g/dL (6.3-8.2) L 04/06/19 08:40 Albumin 3.4 g/dL (3.5-5.0) L 04/06/19 08:40 Urine Color Yellow 04/06/19 17:30 Urine Appearance Clear (Clear) 04/06/19 17:30 Urine pH 7.0 (5.0-8.0) 04/06/19 17:30 Ur Specific [place] 1.023 (1.001-1.035) 04/06/19 17:30 Urine Protein 1+ (Negative) H 04/06/19 17:30 Urine Glucose (UA) Negative (Negative) 04/06/19 17:30 Urine Ketones 2+ (Negative) H 04/06/19 17:30 Urine Blood Negative (Negative) 04/06/19 17:30 Urine Nitrite Negative (Negative) 04/06/19 17:30 Urine Bilirubin Negative (Negative) 04/06/19 17:30 Urine Urobilinogen <2.0 mg/dL (<2.0) 04/06/19 17:30 Ur Leukocyte Esterase Negative (Negative) 04/06/19 17:30 Urine WBC 2 /hpf (0-5) 04/06/19 17:30 Ur Squamous Epith Cells <1 /hpf (0-4) 04/06/19 17:30 Urine Mucus Rare /hpf (None) H 04/06/19 17:30 Microbiology 04/06/19 17:30 Urine,Voided Urine Culture - Final Chest x-ray: image reviewed (Right middle lobe infiltrate new) Assessment and Plan (1) Pneumonia Narrative/Plan: 68 -year-old woman who has a history of common variable immunodeficiency as well as crossover autoimmune diseases including Sjogren's and lupus is in [place] for the summer, she stays with her sister and [id number] who are her general caretakers. They leave [place] to come to their cottage here in [place]. She does have subcutaneous immunoglobulin therapy that she provides for herself. Shortly after arrival she's been exposed to younger children who have viral infections including her sister who developed a respiratory infection and bronchitis. The patient quickly became ill in upon presentation emergency center has evidence of the abnormal chest x-ray likely with pneumonia. Antibiotic therapy was initiated with Rocephin and azithromycin which is appropriate at this point in time pending culture results. The patient relates that she has given her septicemia globulin recently. The level can be obtained but would not plan on supplementing during this hospital stay given that she is improving and stable. Part of her difficulty to admission was the onset of some nausea and emesis and inability to take some of her medications. She was not taking her Cortef in the outpatient setting and likely was having some early difficulties with being off of her chronic steroid therapy. With IV hydration and her dose of intravenous site or Cortef she is not feeling considerably better, nausea and emesis resolved she looks forward to eating some solid food. Cultures will help to find her course of antibiotic therapy the time of her discharge Current Visit: Yes Status: Acute Code(s): J18.9 - PNEUMONIA, UNSPECIFIED ORGANISM SNOMED Code(s): 955979617 (2) Combined variable immunodeficiency Current Visit: No Status: Acute Code(s): D83.9 - COMMON VARIABLE IMMUN ODEFICIENCY, UNSPECIFIED SNOMED Code(s): 637429423 (3) Adrenal insufficiency Current Visit: No Status: Acute Code(s): E27.40 - UNSPECIFIED ADRENOCORTICAL INSUFFICIENCY SNOMED Code(s): 479399996 (4) Autoimmune disorder Current Visit: Yes Status: Acute Code(s): D89.89 - OTH DISRD INVOLVING THE IMMUNE MECHANISM, NEC SNOMED Code(s): 56786742
[2019-04-08] MEDS: IPRATROPIUM-ALBUTEROL 3 ML NEB INHALATION SCH ×5 (01:01→16:42)
[2019-04-08] MEDS: SODIUM CHLORIDE 0.9% 1,000 ML IV SCH ×2 (04:23→12:08)
[2019-04-08] MEDS: HYDROcodone/APAP 5-325MG 1 EACH TAB PO PRN ×2 (04:28→14:06)
[2019-04-08] MEDS: LEVOTHYROXINE 75 MCG TAB PO SCH (04:49)
[2019-04-08] MEDS: buPROPion SR 150 MG TABLET.ER PO SCH (07:43)
[2019-04-08] MEDS: PANTOPRAZOLE 40 MG/10 ML VIAL IVP SCH (07:43)
[2019-04-08] MEDS: ENOXAPARIN 40 MG/0.4 ML SYRINGE SQ SCH (07:43)
[2019-04-08] MEDS: HYDROCORTISONE SUCCINATE 100 MG/2 ML VIAL IV SCH (07:43)
[2019-04-08] MEDS: LIOTHYRONINE SODIUM 5 MCG TAB PO SCH (07:44)
[2019-04-08] MEDS: clonazePAM 0.5 MG TAB PO SCH (07:44)
[2019-04-08] MEDS: GABAPENTIN 400 MG CAP PO SCH (07:44)
[2019-04-08 08:57] VITALS: BP 155/93; RESP 16; TEMP 97.5
[2019-04-08] MEDS: AZITHROMYCIN 500 MG in SODIUM CHLORIDE 0.9% 250 ML IVPB SCH (09:03)
[2019-04-08 14:10] VITALS: PULSE 92
--- NOTE | 2019-04-08 16:11 | P.DS ---
Providers Date of admission: 04/08/19 09:36 Expected date of discharge: 04/08/19 Attending physician: Chey Leyva DO Consults: 04/07/19 11:23 Consult Physician Routine Consulting Provider: Osei Stewart Consult Reason/Comments: autoimmune disorders Do you want consulting provider notified?: Yes Primary care physician: Physician Nonstaff - Discharge Diagnosis(es) (1) Pneumonia Current Visit: Yes Status: Acute (2) Nausea & vomiting Current Visit: Yes Status: Acute (3) Combined variable immunodeficiency Current Visit: No Status: Acute (4) Intractable nausea and vomiting Current Visit: Yes Status: Acute (5) Hypothyroidism Current Visit: Yes Status: Acute (6) Adrenal insufficiency Current Visit: No Status: Acute Hospital Course: The patient is a 68-year-old female a past smoker history of common variable immunodeficiency on weekly IVIG, adrenal insufficiency on Solu-Cortef who presented to the ER and was admitted for acute right-sided pneumonia after presenting with intractable nausea and vomiting, workup with a acute abdominal series showed prominence in the right hilum with adjacent airspace disease and adjacent pneumonia with some vascular congestion greater on the right than left. The patient was started on empiric IV antibiotics with Rocephin and azithromycin, patient was not noted to be septic she remained afebrile and was hemodynamically stable and had a normal white count. She was continued on breathing treatments and resumed on hydrocortisone with supportive treatment with antiemetics Phenergan and Zofran as needed for nausea. Both treatment the patient symptoms improved, infectious diseases was consulted and the patient was seen by Dr. Stewart, cultures were drawn and culture was negative and IgG level was 850. Patient was observed for a few days without any noted fevers and then was subsequently discharged home in stable condition with a prescription for azithromycin. This discharge process took approximately 35 minutes Focused exam: Respiratory: Unlabored cleared also patient bilaterally no wheezes or rhonchi diminished in the bases right greater than left Patient Condition at Discharge: Good Plan - Discharge Summary Discharge Rx Participant: Yes New Discharge Prescriptions: Continue clonazePAM [KlonoPIN] 0.5 - 1 mg PO DAILY Levothyroxine Sodium [Synthroid] 75 mcg PO MOTUWETHFRSA Topiramate [Topamax] 50 mg PO HS Nortriptyline HCl [Pamelor] 25 mg PO HS Ergocalciferol [Vitamin D2 (DRISDOL)] 50,000 unit PO OTOOLE buPROPion HCL [Wellbutrin SR] 300 mg PO DAILY Hydrocortisone [Cortef] 20 mg PO HS Hydrocortisone [Cortef] 30 mg PO QAM Ondansetron [Zofran] 4 mg PO Q12HR PRN PRN Reason: Nausea Liothyronine Sodium [Cytomel] 5 mcg PO BID Promethazine [Phenergan] 25 mg PO Q6H PRN PRN Reason: Nausea Levothyroxine Sodium [Synthroid] 37.5 mcg PO OTOOLE Gabapentin [Neurontin] 400 mg PO BID buPROPion HCL [Wellbutrin SR] 150 mg PO HS Solu-Cortef 100 mg SQ DAILY PRN PRN Reason: Vomiting Discharge Medication List Ergocalciferol [Vitamin D2 (DRISDOL)] 50,000 unit PO OTOOLE 04/18/18 [History] Hydrocortisone [Cortef] 20 mg PO HS 04/18/18 [History] Hydrocortisone [Cortef] 30 mg PO QAM 04/18/18 [History] Levothyroxine Sodium [Synthroid] 75 mcg PO MOTUWETHFRSA 04/18/18 [History] Nortriptyline HCl [Pamelor] 25 mg PO HS 04/18/18 [History] Topiramate [Topamax] 50 mg PO HS 04/18/18 [History] buPROPion HCL [Wellbutrin SR] 300 mg PO DAILY 04/18/18 [History] clonazePAM [KlonoPIN] 0.5 - 1 mg PO DAILY 04/18/18 [History] Liothyronine Sodium [Cytomel] 5 mcg PO BID 05/19/18 [History] Ondansetron [Zofran] 4 mg PO Q12HR PRN 05/19/18 [History] Gabapentin [Neurontin] 400 mg PO BID 04/06/19 [History] Levothyroxine Sodium [Synthroid] 37.5 mcg PO OTOOLE 04/06/19 [History] Promethazine [Phenergan] 25 mg PO Q6H PRN 04/06/19 [History] Solu-Cortef 100 mg SQ DAILY PRN 04/06/19 [History] buPROPion HCL [Wellbutrin SR] 150 mg PO HS 04/06/19 [History] Follow up Appointment(s)/Referral(s): Nonstaff,Physician [Primary Care Provider] - 1-2 days Patient Instructions/Handouts: Acute Nausea and Vomiting (DC)
--- NOTE | 2019-04-08 21:38 | P.PN ---
Subjective Progress Note Date: 04/08/19 68-year-old female is known to the service from prior hospitalizations presents to the emergency center feeling acutely ill and feeling very poorly with respiratory illness. 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 She has come to [place] for the summer into escape the [place] heat. She relates that she does bring her weekly immunoglobulin infusions with her to continue while she is here [place]. She relates that however sister's grandchildren was ill and the sister did develop an upper respiratory infection. Apparently did travel to [place] together. Upon arrival the patient developed respiratory symptoms with increasing cough and sputum production. She developed fevers and chills with some cold sweats and generalized malaise. Respiratory status worsened and because of her immunocompromised was brought in the hospital. Imaging studies revealed evidence of new onset pneumonia and constantly has been admitted and consult was requested. She was feeling somewhat better than admission. She does relate that at home with the onset of fever she started to feel more poorly developed some nausea and was unable to take most of her medications included her Cortef. Shortly thereafter she started to feel much more weak nausea and emesis ensued and eventually presented hospital with the above symptoms. With hydration and rescue with Solu-Cortef IV push she's feeling considerably better this afternoon. She still has a shortness of breath and cough that is not quite as miserable as she was. 02/06/2019 patient is definitely feeling better today. She is much less short of breath. Having no fevers or chills. She has no other new acute concerns. Her nausea and emesis resolved. Strength is improved. Looks forward to going home. Objective - Vital Signs Vital signs: Vital Signs Temp 97.5 F L 04/08/19 07:57 Pulse 92 04/08/19 13:31 Resp 16 04/08/19 07:57 BP 155/93 04/08/19 07:57 Pulse Ox 90 L 04/08/19 07:57 Intake & Output 04/08/19 04/08/19 04/09/19 06:59 18:59 06:59 Other: Voiding Method Toilet # Voids 1 2 - Exam Pleasant 68-year-old woman who apparently is much more comfortable than admission, is not in distress HEENT: Anicteric conjunctiva are pink and moist nasal mucosa grossly intact without significant lesions, there is no thrush. Neck: The neck is supple without significant lymphadenopathy or thyromegaly. Lungs: Good bilateral air entry there is evidence of a few crackles at the right mid posterior zone, no bronchial sounds no dullness or egophony Heart: Regular rate and rhythm with an audible S1-S2, no S3 soft S4, There is no significant murmur click or rub, PMI was nondisplaced. Abdomen: Obese, Positive bowel sounds soft and nontender without palpable masses or organomegaly. There was no guarding or rebound. Extremities: The upper extremities have excellent pulses they are symmetric, no significant petechiae or telangiectasia. No splinter hemorrhages were noted. Motion is evidence of a chronic venous stasis and chronic edema but no open ulcerations are seen Neuro: Awake alert oriented to person place and time. There are no acute new gross focal sensory motor deficits. - Labs CBC & Chem 7: 04/07/19 09:45 04/06/19 08:40 Labs: Microbiology - Last 24 Hours (Table) 04/06/19 17:30 Urine Culture - Final Urine,Voided Laboratory Results WBC 6.0 k/uL (3.8-10.6) 04/07/19 09:45 RBC 3.79 m/uL (3.80-5.40) L 04/07/19 09:45 Hgb 11.4 gm/dL (11.4-16.0) 04/07/19 09:45 Hct 37.5 % (34.0-46.0) 04/07/19 09:45 MCV 98.9 fL (80.0-100.0) 04/07/19 09:45 MCH 30.1 pg (25.0-35.0) 04/07/19 09:45 MCHC 30.4 g/dL (31.0-37.0) L 04/07/19 09:45 RDW 14.9 % (11.5-15.5) 04/07/19 09:45 Plt Count 156 k/uL (150-450) 04/07/19 09:45 Neutrophils % 80 % 04/07/19 09:45 Lymphocytes % 11 % 04/07/19 09:45 Monocytes % 6 % 04/07/19 09:45 Eosinophils % 1 % 04/07/19 09:45 Basophils % 0 % 04/07/19 09:45 Neutrophils # 4.8 k/uL (1.3-7.7) 04/07/19 09:45 Lymphocytes # 0.7 k/uL (1.0-4.8) L 04/07/19 09:45 Monocytes # 0.3 k/uL (0-1.0) 04/07/19 09:45 Eosinophils # 0.0 k/uL (0-0.7) 04/07/19 09:45 Basophils # 0.0 k/uL (0-0.2) 04/07/19 09:45 Hypochromasia Slight 04/07/19 09:45 PT 10.6 sec (9.0-12.0) 04/06/19 08:40 INR 1.0 (<1.2) 04/06/19 08:40 APTT 29.7 sec (22.0-30.0) 04/06/19 08:40 Sodium 137 mmol/L (137-145) 04/06/19 08:40 Potassium 4.3 mmol/L (3.5-5.1) 04/06/19 08:40 Chloride 102 mmol/L (98-107) 04/06/19 08:40 Carbon Dioxide 26 mmol/L (22-30) 04/06/19 08:40 Anion Gap 9 mmol/L 04/06/19 08:40 BUN 22 mg/dL (7-17) H 04/06/19 08:40 Creatinine 0.96 mg/dL (0.52-1.04) 04/06/19 08:40 Est GFR (CKD-EPI)AfAm 70 (>60 ml/min/1.73 sqM) 04/06/19 08:40 Est GFR (CKD-EPI)NonAf 61 (>60 ml/min/1.73 sqM) 04/06/19 08:40 Glucose 82 mg/dL (74-99) 04/06/19 08:40 Calcium 8.8 mg/dL (8.4-10.2) 04/06/19 08:40 Phosphorus 3.0 mg/dL (2.5-4.5) 04/06/19 08:40 Magnesium 2.0 mg/dL (1.6-2.3) 04/06/19 08:40 Total Bilirubin 0.7 mg/dL (0.2-1.3) 04/06/19 08:40 AST 33 U/L (14-36) 04/06/19 08:40 ALT 32 U/L (9-52) 04/06/19 08:40 Alkaline Phosphatase 75 U/L (38-126) 04/06/19 08:40 Troponin I <0.012 ng/mL (0.000-0.034) 04/06/19 08:40 NT-Pro-B Natriuret Pep 344 pg/mL 04/06/19 08:40 Total Protein 6.1 g/dL (6.3-8.2) L 04/06/19 08:40 Albumin 3.4 g/dL (3.5-5.0) L 04/06/19 08:40 Urine Color Yellow 04/06/19 17:30 Urine Appearance Clear (Clear) 04/06/19 17:30 Urine pH 7.0 (5.0-8.0) 04/06/19 17:30 Ur Specific Stuart 1.023 (1.001-1.035) 04/06/19 17:30 Urine Protein 1+ (Negative) H 04/06/19 17:30 Urine Glucose (UA) Negative (Negative) 04/06/19 17:30 Urine Ketones 2+ (Negative) H 04/06/19 17:30 Urine Blood Negative (Negative) 04/06/19 17:30 Urine Nitrite Negative (Negative) 04/06/19 17:30 Urine Bilirubin Negative (Negative) 04/06/19 17:30 Urine Urobilinogen <2.0 mg/dL (<2.0) 04/06/19 17:30 Ur Leukocyte Esterase Negative (Negative) 04/06/19 17:30 Urine WBC 2 /hpf (0-5) 04/06/19 17:30 Ur Squamous Epith Cells <1 /hpf (0-4) 04/06/19 17:30 Urine Mucus Rare /hpf (None) H 04/06/19 17:30 IgG 850.0 mg/dL (700.0-1600.0) 04/08/19 07:06 Microbiology 04/06/19 17:30 Urine,Voided Urine Culture - Final Assessment and Plan (1) Pneumonia Narrative/Plan: 68 -year-old woman who has a history of common variable immunodeficiency as well as crossover autoimmune diseases including Sjogren's and lupus is in [place] for the summer, she stays with her sister and [id number] who are her general caretakers. They leave [place] to come to their cottage here in [place]. She does have subcutaneous immunoglobulin therapy that she provides for herself. Shortly after arrival she's been exposed to younger children who have viral infections including her sister who developed a respiratory infection and bronchitis. The patient quickly became ill in upon presentation emergency center has evidence of the abnormal chest x-ray likely with pneumonia. Antibiotic therapy was initiated with Rocephin and azithromycin which is appropriate at this point in time pending culture results. The patient relates that she has given her septicemia globulin recently. The level can be obtained but would not plan on supplementing during this hospital stay given that she is improving and stable. Part of her difficulty to admission was the onset of some nausea and emesis and inability to take some of her medications. She was not taking her Cortef in the outpatient setting and likely was having some early difficulties with being off of her chronic steroid therapy. With IV hydration and her dose of intravenous site or Cortef she is not feeling considerably better, nausea and emesis resolved she looks forward to eating some solid food. Cultures will help to find her course of antibiotic therapy the time of her discharge 02/06/2019 the patient is not feeling considerably better. Her fevers have resolved. Her cough is improved. She is short of breath. She has no nausea or emesis. Overall feels considerably better. She relates that she ready for discharge to home. Solo landeros is sent to her pharmacy with a azithromycin 500 mg a day given her immunocompromised status we'll plan a week of therapy. Her IgG level came back at greater than 800 and consequently she is not in need of in hospital replacement of her immunoglobulins. She may resume her home subcutaneous gammaglobulin schedule. Status: Acute Code(s): J18.9 - PNEUMONIA, UNSPECIFIED ORGANISM SNOMED Code(s): 839138119 (2) Combined variable immunodeficiency Status: Acute Code(s): D83.9 - COMMON VARIABLE IMMUNODEFICIENCY, UNSPECIFIED SNOMED Code(s): 669937390 (3) Adrenal insufficiency Status: Acute Code(s): E27.40 - UNSPECIFIED ADRENOCORTICAL INSUFFICIENCY SNOMED Code(s): 557704067 (4) Autoimmune disorder Status: Acute Code(s): D89.89 - OTH DISRD INVOLVING THE IMMUNE MECHANISM, NEC SNOMED Code(s): 55014687
[2019-04-09] MEDS ORDERED: PANTOPRAZOLE 40 MG TABLET PO SCH (07:30)
[2019-04-09] MEDS ORDERED: CEFDINIR 300 MG CAP PO SCH (09:00)
[2019-04-09] MEDS ORDERED: AZITHROMYCIN 500 MG TAB PO SCH (09:00)
== END 2019-04-08 16:45 | disposition home or self-care (01) | DRG 194 ==
LOC: EC 08:58 → 4SSUR 10:41 → OBSVTOIN 04-08 09:36
PROVIDERS: ADMIT Internal Medicine; ATTEND Internal Medicine
DX: J18.9 Pneumonia, unspecified organism (principal); D81.89 Other combined immunodeficiencies; D83.9 Common variable immunodeficiency, unspecified; E27.40 Unspecified adrenocortical insufficiency; E86.0 Dehydration; E89.0 Postprocedural hypothyroidism; F32.9 Major depressive disorder, single episode, unspecified; F41.9 Anxiety disorder, unspecified; G89.29 Other chronic pain; G43.A1 Cyclical vomiting, in migraine, intractable; G90.9 Disorder of the autonomic nervous system, unspecified; M06.9 Rheumatoid arthritis, unspecified; M35.00 Sjogren syndrome, unspecified; N30.10 Interstitial cystitis (chronic) without hematuria; Z79.52 Long term (current) use of systemic steroids; Z79.890 Hormone replacement therapy; Z79.899 Other long term (current) drug therapy; Z82.49 Family history of ischemic heart disease and other diseases of the circulatory system; Z82.5 Family history of asthma and other chronic lower respiratory diseases; Z87.891 Personal history of nicotine dependence; R10.9 Unspecified abdominal pain; Z88.1 Allergy status to other antibiotic agents
CPT/HCPCS: 36415; 74022; 80053; 81001; 82784; 83735; 83880; 84100; 84484; 85025; 85610; 85730; 87086; 93005; 94640; 96361; 96365; 96375; 99285